=== PATIENT | female | born 1990 | race Caucasian/White ===

== ENCOUNTER 2020-02-17 11:11 | Outpatient (REF) | payer OTHER, SELFPAY ==
[2020-02-18 11:58] LABS: CT PCR NOT DETECTED (Not Detect.)
[2020-02-18 11:59] LABS: NG PCR NOT DETECTED (Not Detect.)
[2020-02-18 12:22] LABS: BV Int Neg Control Negative (Negative); BV Int Pos Control Positive (Positive)
== END 2020-02-17 11:12 | disposition home or self-care (01) ==
LOC: HO.LNP 11:11
PROVIDERS: PCP Internal Medicine; Visit Provider Advanced Practice Midwife
DX: Z30.431 Encounter for routine checking of intrauterine contraceptive device (principal); R10.2 Pelvic and perineal pain
CPT/HCPCS: 87480; 87491; 87510; 87591; 87660; 99213

== ENCOUNTER 2020-02-21 11:12 | Outpatient (REF) | payer OTHER, SELFPAY ==
--- NOTE | 2020-02-21 11:28 | US_ITS ---
EXAMINATION: US PELVIS, COMPLETE CLINICAL INFORMATION: Pelvic and perineal pain. COMPARISON: None TECHNIQUE: Transabdominal and transvaginal imaging was performed. FINDINGS: LMP: 02/17/2020 Uterus is anteverted , measuring 8.6 x 4.1 cm. Hypoechoic 0.7 x 0.6 x 0.8 cm focus in the anterior uterine myometrium, probable fibroid. There is an IUD present in the endometrium. This limits evaluation for the endometrial thickness. Nabothian cyst present. There is trace fluid in the cervix endometrial canal. Right ovary measures 3.7 x 2.5 x 2.2 cm, volume 10.7 mL. Left ovary measures 2.7 x 2.4 x 2 cm, volume 7.1 mL. Bilateral ovaries appear unremarkable. Small follicles present. No free fluid in the cul-de-sac. IMPRESSION: 1. IUD present, appears positioned within the endometrial canal. 2. Probable uterine fibroid measuring 0.8 cm.
== END 2020-02-21 11:13 | disposition home or self-care (01) ==
LOC: HO.US 11:12
PROVIDERS: Visit Provider Advanced Practice Midwife
DX: R10.2 Pelvic and perineal pain (principal); Z97.5 Presence of (intrauterine) contraceptive device
CPT/HCPCS: 76830; 76856

== ENCOUNTER 2020-03-07 11:13 | Outpatient (REF) | payer OTHER, SELFPAY | END 2020-03-07 11:14 | disposition home or self-care (01) | LOC: HO.LAB 11:13 | PROVIDERS: Visit Provider Advanced Practice Midwife | DX: R10.2 Pelvic and perineal pain (principal); Z30.432 Encounter for removal of intrauterine contraceptive device; Z30.09 Encounter for other general counseling and advice on contraception | CPT/HCPCS: 99212 ==

== ENCOUNTER 2020-05-03 18:41 | Emergency (ER) | payer OTHER, SELFPAY ==
[2020-05-03 19:00] VITALS: BP 134/78; PULSE 97; RESP 18; TEMP 37.1; O2SAT 98; BMI 43.9
[2020-05-03 20:00] VITALS: BP 146/87; PULSE 77; RESP 18; TEMP 36.8; O2SAT 98
--- NOTE | 2020-05-03 20:11 | CT_ITS ---
EXAMINATION: CT ABDOMEN AND PELVIS WITHOUT CONTRAST CLINICAL INFORMATION: Left flank pain COMPARISON: None TECHNIQUE: Multidetector volumetric imaging was performed from the superior aspect of the liver through the pubic symphysis. Sagittal and coronal reformatted images were obtained on the technologist's workstation. This CT examination was performed using dose optimization techniques as appropriate, variously including the following: *Automated exposure control *Adjustment of mA and/or kV according to patient size (this includes techniques or standardized protocols for targeted exams where dose is matched to indication/reason for exam; i.e. extremities or head) *Use of iterative reconstruction technique DLP: 992 mGy-cm FINDINGS: LUNG BASES: The visualized lung bases are unremarkable. LIVER, GALLBLADDER, AND BILIARY TREE: Liver normal in size, contour and morphology. Mild diffuse hepatic steatosis. No focal liver lesions. No intra or extrahepatic biliary dilatation. Gallbladder unremarkable. PANCREAS: Unremarkable. SPLEEN: Unremarkable. ADRENAL GLANDS: Unremarkable. KIDNEYS AND URETERS: There is a 6 x 4 mm calculus within the distal left ureter at the ureterovesical moderate upstream hydroureteronephrosis and perinephric stranding. No calculi are present. BLADDER: Unremarkable. GASTROINTESTINAL TRACT: No bowel related abnormalities ABDOMINAL WALL: No significant hernia is appreciated. LYMPH NODES: Normal. VASCULAR: Unremarkable. PELVIC VISCERA: Uterus and adnexa unremarkable. OSSEOUS STRUCTURES: Unremarkable. CT/CT abdomen pelvis wo IV con IMPRESSION: There is a 6 x 4 mm calculus within the distal LEFT ureter at the ureterovesical junction associated with moderate upstream hydroureteronephrosis.
--- NOTE | 2020-05-03 20:17 | ED_ITS ---
HPI - Abdominal Pain General Chief Complaint: Abdominal Pain Stated Complaint: ?kidney pain Time Seen by Provider: 05/03/20 20:11 Source: patient Mode of arrival: ambulatory Limitations: no limitations History of Present Illness HPI narrative: 29-year-old female presented with left-sided upper back/left side lower abdominal pain pain started few weeks ago but today pain is worse in her left flank area radiating down to the left groin area, patient feeling nauseous and decreased p.o. intake, patient describes pain as constant fluctuating now pain is 7/10, pain is associated with nonbloody watery diarrhea and decreased p.o. appetite, movement of the trunk will worsen the pain, nothing makes pain better. Patient declined any UTI symptoms no dysuria, no urinary frequency, no blood in the urine. Related Data Home Medications Medication Instructions Recorded Confirmed levonorgestrel 20 mcg/24 hours (6 INTRAUTERINE 02/17/20 02/17/20 yrs) 52 mg intrauterine device omeprazole 20 mg capsule,delayed 20 mg PO DAILY 02/17/20 02/17/20 release escitalopram oxalate 20 mg tablet 20 mg PO DAILY 03/07/20 Previous Rx's Medication Instructions Recorded etonogestrel 0.12 mg-ethinyl 1 vag ring VAGINAL Q4W #1 ea 03/07/20 estradiol 0.015 mg/24 hr vaginal ring oxycodone-acetaminophen [Percocet] 1 tab PO Q6H PRN #14 tab 05/03/20 Allergies Allergy/AdvReac Type Severity Reaction Status Date / Time No Known Allergies Allergy Verified 03/07/20 11:54 [No Known Allergies*] Review of Systems Review of Systems All other systems are reviewed and are negative Constitutional: Reports as per HPI and Reports no additional constitutional complaints Eyes: Reports as per HPI and Reports no additional eye complaints Reports system reviewed and no additional complaints, except as documented Cardiovascular: Reports as per HPI and Reports no additional cardiovascular complaints Respiratory: Reports as per HPI and Reports no additional respiratory complaints Gastrointestinal: Reports as per HPI and Reports no additional gastrointestinal complaints Genitourinary: Reports no additional female genitourinary complaints Musculoskeletal: Reports no additional musculoskeletal complaints Skin/Breast: Reports system reviewed and no additional complaints, except as docu Psychiatric: Reports no additional psychiatric complaints Endocrine: Reports no additional endocrine complaints Hematologic/Lymphatic: Reports no additional hematologic/lymphatic complaints Allergic/Immunologic: Reports no additional allergic/immunologic complaints Reports system reviewed and no additional complaints, except as documented and Reports Abnormal speech present Physical Exam Vital Signs: Vital Signs: Last Vital Signs Temp 98.2 F 05/03/20 20:00 Pulse 77 05/03/20 20:00 Resp 18 05/03/20 20:00 BP 146/87 H 05/03/20 20:00 Pulse Ox 98 05/03/20 20:00 Body Mass Index 43.9 Vital signs have been reviewed as normal and appeared to be correct. Blood pres sure and a high range. Heart rate normal. Respiration rate normal. Temperature normal. Oxygen saturation normal. Appearance: Alert. Oriented X3. No acute distress. Head: Normal external exam. Normocephalic. Atraumatic. No Waddell signs noted. No raccoon eyes noted Eyes: PERRLA. EOMI. Conjunctiva and sclera normal. Eyelids normal. ENT: EAC normal. TM's Normal. Pharynx normal. Uvula midline. Moist mucous membranes. No trismus noted. No drooling noted. No muffled voice noted. Neck: Normal inspection. Neck supple. FROM. No adenopathy. Thyroid Normal. No meningeal signs. No neck mass noted. CVS: Normal heart rate and rhythm. Heart sound normal. No murmurs noted. Pulses normal throughout. Respiratory: No respiratory distress. Painless inspiration. Breath sounds normal. No wheezes/rales/rhonchi noted. Chest nontender. No accessory muscle usage noted or decreased air movement noted. Abdomen: Soft, with mild tenderness in the left lower quadrant area, mild CVA tenderness on the left side, no rebound tenderness, no guarding.. Bowel sounds normal in all 4 quadrants. No distention noted. No organomegaly noted. No visible injury noted. Back: Left CVA tenderness (mild). Full range of motion noted. Skin: Skin warm and dry. Normal skin color. Normal skin turgor. No rashes/lesions/lacerations noted. Extremities: No lower extremity edema. Extremities exhibit normal range of motion. Extremities nontender. Neuro: Oriented X 3. No motor deficit. No sensory deficit. Reflexes normal. Course Course Course Narrative: Assessment and plan. 29-year-old female came in with left flank/left lower abdominal pain. Workup revealed patient have 6 x 4 mm calculus in the left distal UVJ, patient is comfortable now pain is about 1/10 no other associated symptoms, patient would like to go home for the holidays, patient was offered admission but rather to go home, the plan was discussed with the patient to drink plenty of fluid, prescribed pain medication, contact Dr. Flores after holiday, and if pain gets worse patient return to the emergency department. MDM - Abdominal Pain Lab Data Result diagrams: 05/03/20 20:58 05/03/20 20:58 Labs: Lab Results 05/03/20 05/03/20 05/03/20 Range/Units 20:58 20:58 20:58 WBC 11.4 H (4.8-10.8) X10*3/uL RBC 4.50 (4.20-5.50) X10*6/uL Hgb 13.5 (12.0-16.0) g/dl Hct 39.4 (37-47) % MCV 87.6 (80-98) fL MCH 30.0 (27.0-33.0) pg MCHC 34.3 (31.0-35.0) g/dl RDW 11.8 (11.0-16.0) % Plt Count 240 (160-400) X10*3/uL MPV 11.6 (9.4-12.3) fL Immature Gran % (Auto) 0.4 (0.0-0.4) % Neut % (Auto) 74.1 H (45-73) % Lymph % (Auto) 17.9 L (20-40) % [place] % (Auto) 6.7 (2-11) % Eos % (Auto) 0.6 (0-4) % Baso % (Auto) 0.3 (0-2) % Lymph # (Auto) 2.0 (1.2-4.9) X10*3/uL [place] # (Auto) 0.8 (0.1-1.2) X10*3/uL Eos # (Auto) 0.1 (0.0-0.4) X10*3/uL Baso # (Auto) 0.0 (0.0-0.2) X10*3/uL Abs Immat Gran (auto) 0.04 H (0.00-0.03) X10*3/uL Absolute Neuts (auto) 8.5 H (2.0-8.3) X10*3/uL Absolute Nucleated RBC 0.000 (0.0-0.012) X10*3/uL Nucleated RBC % (auto) 0.0 (0.0-0.2) /100WBC Sodium 136 (135-145) mmol/L Potassium 4.5 (3.3-5.1) mmol/l Chloride 103 (96-108) mmol/L Carbon Dioxide 25 (22-29) mmol/L Anion Gap 13 (12-20) BUN 11 (9-16) mg/dL Creatinine 1.24 (0.5-1.4) mg/dL Estim Creat Clear Calc 85.9 Estimated GFR 51 Random Glucose 99 (60-115) mg/dL Calcium 9.2 (8.4-10.2) mg/dL Total Bilirubin 0.4 (0.0-1.0) mg/dL Direct Bilirubin 0.2 (0.0-0.5) mg/dL AST 21 (5-31) U/L ALT 21 (0-31) U/L Alkaline Phosphatase 67 (39-117) U/L Total Protein 7.5 (6.5-8.0) g/dL Albumin 4.4 (3.5-5.0) g/dL Lipase 25 (8-78) U/L Urine Color YELLOW Urine Appearance CLEAR Urine pH 6.0 (5.0-8.0) Ur Specific [place] 1.020 (1.005-1.025) Urine Protein NEG (NEG-TRACE) MG/DL Urine Glucose (UA) NEG (NEG) MG/DL Urine Ketones NEG (NEG) MG/DL Urine Blood 1+ H (NEG) Urine Nitrite NEG (NEG) Ur Leukocyte Esterase NEG (NEG) Urine RBC 0-2 (0) /HPF Urine WBC 0 (0-4) /HPF Ur Squamous Epith Cells TRACE /LPF Urine Bacteria NONE /LPF Urine Test NEGATIVE (NEGATIVE) Imaging Data CT scan - abdomen: Radiologist's impression: IMPRESSION: There is a 6 x 4 mm calculus within the distal LEFT ureter at the ureterovesical junction associated with moderate upstream hydroureteronephrosis. Discharge Plan Discharge Clinical Impression: Renal colic on left side, Calculi, ureter Patient Disposition: Home, Self-Care Prescriptions: New oxycodone-acetaminophen [Percocet] 5-325 mg tablet 1 tab PO Q6H PRN (Reason: pain) Qty: 14 RF: 0 No Action etonogestrel-ethinyl estradiol [NuvaRing] 0.12-0.015 mg/24 hr ring 1 vag ring vaginal Q4W Qty: 1 RF: 3 omeprazole 20 mg capsule,delayed release(DR/EC) 20 mg PO DAILY RF: 0 Mirena 20 mcg/24 hours (5 yrs) 52 mg intrauterine device intrauterine RF: 0 Referrals: Jose G Flores MD [Physician] - 2 days [facility] Past Medical History Medical History Morbid obesity with BMI of 40.0-44.9, adult Surgical History No history of previous surgery Family History Family History Maternal Aunt Breast cancer Social History Social History Alcohol intake: never Smoking Status: Never smoker Smoked in Last 30 Days: No Use of substances other than those prescribed or required for medical reasons: No Advance Directives: No Advance Directives Information Provided: Yes Gender identity: female
[2020-05-03] MEDS: Ketorolac Tromethamine 15 MG/ML VIAL IV (21:00)
[2020-05-03] MEDS: 0.9 % Sodium Chloride 1,000 ML 999 ML IVCONT (21:00)
[2020-05-03 21:21] LABS: MANUAL DIFF FLAG NO
[2020-05-03 21:22] LABS: Basophils Percent Auto 0.3 % (0-2); Eosinophils Absolute Auto 0.1 X10*3/uL (0.0-0.4); Eosinophils Percent Auto 0.6 % (0-4); Hematocrit 39.4 % (37-47); Hemoglobin 13.5 g/dl (12.0-16.0); Imm Gran Abs Auto 0.04 X10*3/uL (0.00-0.03); Imm Gran Pct Auto 0.4 % (0.0-0.4); Lymphocytes Percent Auto 17.9 % (20-40); Mean Corpuscular HGB Conc 34.3 g/dl (31.0-35.0); Mean Corpuscular Volume 87.6 fL (80-98); Mean Platelet Volume 11.6 fL (9.4-12.3); Monocytes Absolute Auto 0.8 X10*3/uL (0.1-1.2); Monocytes Percent Auto 6.7 % (2-11); Neutrophils Absolute Auto 8.5 X10*3/uL (2.0-8.3); Neutrophils Percent Auto 74.1 % (45-73); Platelet Count 240 X10*3/uL (160-400); Red Cell Distribution Width 11.8 % (11.0-16.0); White Blood Count 11.4 X10*3/uL (4.8-10.8)
[2020-05-03 21:34] LABS: Glucose Urine UA NEG (NEG); Leukocyte Esterase Urine NEG (NEG); Nitrite Urine NEG (NEG); Urine Blood 1+ (NEG); Urine Ketones NEG (NEG); Urine Protein NEG (NEG-TRACE)
[2020-05-03 21:37] LABS: Appearance Urine CLEAR; Color Urine YELLOW
[2020-05-03 21:49] LABS: Alanine Aminotransferase 21 U/L (0-31); Albumin Level 4.4 g/dL (3.5-5.0); Alkaline Phosphatase 67 U/L (39-117); Anion Gap 13 (12-20); Aspartate Amino Transferase 21 U/L (5-31); Bilirubin Direct 0.2 mg/dL (0.0-0.5); Bilirubin Total 0.4 mg/dL (0.0-1.0); Blood Urea Nitrogen 11 mg/dL (9-16); Calcium 9.2 mg/dL (8.4-10.2); Carbon Dioxide 25 mmol/L (22-29); Chloride 103 mmol/L (96-108); Creatinine Clr Calc Pharmacy 85.9; Estimated Glomerular Filt Rate 51; Glucose Random 99 mg/dL (60-115); Lipase 25 U/L (8-78); Potassium 4.5 mmol/l (3.3-5.1); Sodium 136 mmol/L (135-145); Total Protein 7.5 g/dL (6.5-8.0)
[2020-05-03 22:00] VITALS: BP 151/92; PULSE 89; RESP 18; TEMP 36.9; O2SAT 97
[2020-05-03 22:04] LABS: RBC Urine 0-2 /HPF (0); Squamous Epithelial Cell Urine TRACE /LPF; WBC Urine 0 /HPF (0-4)
[2020-05-03 22:05] LABS: UPreg QC Valid YES; Urine Pregnancy NEGATIVE (NEGATIVE)
== END 2020-05-03 23:09 | disposition home or self-care (01) ==
PROVIDERS: Emergency Provider Emergency Medicine; PCP Internal Medicine
DX: N13.2 Hydronephrosis with renal and ureteral calculous obstruction (principal)
CPT/HCPCS: 36415; 74176; 80048; 80076; 81001; 81025; 83690; 85025; 96361; 96374; 99284; 99285; J1885

== ENCOUNTER 2020-05-04 10:32 | Emergency (ER) | payer OTHER, SELFPAY ==
[2020-05-04 10:49] VITALS: BP 132/77; PULSE 88; RESP 16; TEMP 36.6; O2SAT 97; BMI 43.9
[2020-05-04] MEDS: Morphine Sulfate 4 MG/ML CARTRIDGE IVPUSH (11:32)
[2020-05-04] MEDS: 0.9 % Sodium Chloride 1,000 ML 999 ML IV (11:33)
[2020-05-04 11:38] LABS: MANUAL DIFF FLAG NO
[2020-05-04 11:40] LABS: Glucose Urine UA NEG (NEG); Leukocyte Esterase Urine NEG (NEG); Nitrite Urine NEG (NEG); PH 6.5 (5.0-8.0); Specific Gravity - Urine 1.015 (1.005-1.025); Urine Blood 2+ (NEG); Urine Ketones NEG (NEG); Urine Protein NEG (NEG-TRACE)
[2020-05-04 11:43] LABS: Appearance Urine CLEAR; Color Urine YELLOW
[2020-05-04 11:44] LABS: Basophils Percent Auto 0.2 % (0-2); Eosinophils Percent Auto 0.2 % (0-4); Hematocrit 41.8 % (37-47); Hemoglobin 14.3 g/dl (12.0-16.0); Imm Gran Abs Auto 0.02 X10*3/uL (0.00-0.03); Imm Gran Pct Auto 0.2 % (0.0-0.4); Lymphocytes Absolute Auto 1.6 X10*3/uL (1.2-4.9); Lymphocytes Percent Auto 15.6 % (20-40); Mean Corpuscular HGB Conc 34.2 g/dl (31.0-35.0); Mean Corpuscular Hemoglobin 30.3 pg (27.0-33.0); Mean Corpuscular Volume 88.6 fL (80-98); Mean Platelet Volume 11.1 fL (9.4-12.3); Monocytes Absolute Auto 0.7 X10*3/uL (0.1-1.2); Monocytes Percent Auto 6.9 % (2-11); Neutrophils Absolute Auto 7.7 X10*3/uL (2.0-8.3); Neutrophils Percent Auto 76.9 % (45-73); Platelet Count 243 X10*3/uL (160-400); Red Blood Count 4.72 X10*6/uL (4.20-5.50); Red Cell Distribution Width 11.8 % (11.0-16.0)
--- NOTE | 2020-05-04 11:48 | ED.ABDPAIN ---
HPI - Abdominal Pain General Chief Complaint: Abdominal Pain Stated Complaint: flank pain Time Seen by Provider: 05/04/20 10:59 Source: patient Mode of arrival: ambulatory Limitations: no limitations History of Present Illness HPI narrative: Patient presents ED for left flank pain. Patient was diagnosis this morning around 00:00 with left ureter stone with moderate hydronephrosis and perinephric stranding. Patient was offered admission but did not want to stay. Patient returned because the pain has worsened and not improve even with oral pain medication. Patient states no fever or chills. Related Data Home Medications Medication Instructions Recorded Confirmed levonorgestrel 20 mcg/24 hours (6 INTRAUTERINE 02/17/20 02/17/20 yrs) 52 mg intrauterine device omeprazole 20 mg capsule,delayed 20 mg PO DAILY 02/17/20 02/17/20 release escitalopram oxalate 20 mg tablet 20 mg PO DAILY 03/07/20 Previous Rx's Medication Instructions Recorded etonogestrel 0.12 mg-ethinyl 1 vag ring VAGINAL Q4W #1 ea 03/07/20 estradiol 0.015 mg/24 hr vaginal ring oxycodone-acetaminophen [Percocet] 1 tab PO Q6H PRN #14 tab 05/03/20 ondansetron HCl [Zofran] 4 mg PO Q6H PRN #8 tab 05/04/20 prednisone 40 mg PO DAILY #10 tab 05/04/20 tamsulosin [Flomax] 0.4 mg PO DAILY #7 cap 05/04/20 Allergies Allergy/AdvReac Type Severity Reaction Status Date / Time No Known Allergies Allergy Verified 03/07/20 11:54 [No Known Allergies*] Review of Systems Review of Systems Yes all other systems are reviewed and are negative Constitutional: Reports as per HPI and Reports no additional constitutional complaints Eyes: Reports as per HPI and Reports no additional eye complaints Reports system reviewed and no additional complaints, except as documented and Reports as per HPI Cardiovascular: Reports as per HPI and Reports no additional cardiovascular complaints Respiratory: Reports as per HPI and Reports no additional respiratory complaints Gastrointestinal: Reports as per HPI and Reports no additional gastrointestinal complaints Comments: Left flank pain Genitourinary: Reports no additional female genitourinary complaints and Reports as per HPI Musculoskeletal: Reports no additional musculoskeletal complaints and Reports as per HPI Reports system reviewed and no additional complaints, except as documented and Reports as per HPI Psychiatric: Reports no additional psychiatric complaints and Reports as per HPI Physical Exam Vital Signs: Vital Signs: Last Vital Signs Temp 97.8 F 05/04/20 10:49 Pulse 81 05/04/20 12:31 Resp 16 05/04/20 12:31 BP 110/55 L 05/04/20 12:31 Pulse Ox 98 05/04/20 12:31 Body Mass Index 43.9 Const: General: cooperative, healthy appearing, comfortable, no acute distress and well developed Orientation/consciousness: patient oriented x3 HENMT: Head: Yes normal to inspection and Yes No palpable skull fracture present Eyes: General: appearance normal, both eyes and all related structures Neck: Neck: Yes normal visual inspection, Yes full ROM and Yes no lymphadenopathy Chest: Chest palpation & inspection: normal inspection of the chest and normal palpation of entire chest wall Resp: Effort & Inspection: normal respiratory effort and able to speak in complete sentences Auscultation: clear to auscultation bilaterally Cardio: Jugular venous distension: no JVD Heart sounds: S1 normal heart sound present and S2 normal heart sound present GI: Inspection: Yes normal to inspection and No abdominal wall ecchymosis Palpation (GI): Soft to palpation, not firm, nontender, no guarding and not rigid : General: Yes CVA tenderness (Left flank) Back/Spine/Pelvis: Back: CVA tenderness (Left flank) Skin: General skin exam: no rashes or lesions noted and elasticity normal Neuro: General: patient oriented x3, gait normal and CN's II-XI intact bilaterally Cranial nerves: Yes CN's II-XII intact bilaterally Extrem: General: Yes normal to inspection and Yes full ROM Psych: Appearance: grossly normal, well kempt and not disheveled Course Course Course Narrative: Patient return for worsening left flank pain after being diagnosed with kidney stones this morning at 00:00. Patient CT scan was done less than 10 hours ago radiology was concern for radiation exposure. After labs will call urologist to see if patient should be admitted or if if repeat CT indicated. Reevaluation(s) Reevaluation #1: No need for repeat CT scan. Patient had 1 less than 10 hours ago. Patient's pain improved from a 6 to a 2 after receiving morphine. Spoke with Urology on-call, Dr Olmstead, and he was informed of patient's history, physical exam, and the CT scan reading from yesterday. He states patient should be discharged with Flomax and prednisone which she was not done with on prior visit. He does not recommend admission Vital signs are stable no need for repeat imaging. Patient will follow-up with Urology on Thursday. He recommends patient to receive 0.8 mg of Flomax in the ED and discharged with Flomax and prednisone. Time: 13:27 MDM - Abdominal Pain MDM Narrative Medical decision making narrative: Ureter stone Lab Data Result diagrams: 05/04/20 11:05/04/20 11:29 Labs: Lab Results 05/04/20 05/04/20 05/04/20 Range/Units 11:28 11:29 11:29 WBC 10.0 (4.8-10.8) X10*3/uL RBC 4.72 (4.20-5.50) X10*6/uL Hgb 14.3 (12.0-16.0) g/dl Hct 41.8 (37-47) % MCV 88.6 (80-98) fL MCH 30.3 (27.0-33.0) pg MCHC 34.2 (31.0-35.0) g/dl RDW 11.8 (11.0-16.0) % Plt Count 243 (160-400) X10*3/uL MPV 11.1 (9.4-12.3) fL Immature Gran % (Auto) 0.2 (0.0-0.4) % Neut % (Auto) 76.9 H (45-73) % Lymph % (Auto) 15.6 L (20-40) % [place] % (Auto) 6.9 (2-11) % Eos % (Auto) 0.2 (0-4) % Baso % (Auto) 0.2 (0-2) % Lymph # (Auto) 1.6 (1.2-4.9) X10*3/uL [place] # (Auto) 0.7 (0.1-1.2) X10*3/uL Eos # (Auto) 0.0 (0.0-0.4) X10*3/uL Baso # (Auto) 0.0 (0.0-0.2) X10*3/uL Abs Immat Gran (auto) 0.02 (0.00-0.03) X10*3/uL Absolute Neuts (auto) 7.7 (2.0-8.3) X10*3/uL Absolute Nucleated RBC 0.000 (0.0-0.012) X10*3/uL Nucleated RBC % (auto) 0.0 (0.0-0.2) /100WBC PT 11.7 (10.8-13.0) SEC INR 1.0 (0.9-1.1) APTT 34.0 (24.1-38.0) SEC Sodium 137 (135-145) mmol/L Potassium 4.5 (3.3-5.1) mmol/l Chloride 103 (96-108) mmol/L Carbon Dioxide 24 (22-29) mmol/L Anion Gap 15 (12-20) BUN 10 (9-16) mg/dL Creatinine 1.26 (0.5-1.4) mg/dL Estim Creat Clear Calc 84.6 Estimated GFR 50 Random Glucose 104 (60-115) mg/dL Calcium 9.1 (8.4-10.2) mg/dL Total Bilirubin 0.7 (0.0-1.0) mg/dL AST 21 (5-31) U/L ALT 20 (0-31) U/L Alkaline Phosphatase 73 (39-117) U/L Total Protein 7.6 (6.5-8.0) g/dL Albumin 4.5 (3.5-5.0) g/dL Beta HCG, Quant < 2 mIU/mL Urine Color Urine Appearance Urine pH (5.0-8.0) Ur Specific [place] (1.005-1.025) Urine Protein (NEG-TRACE) MG/DL Urine Glucose (UA) (NEG) MG/DL Urine Ketones (NEG) MG/DL Urine Blood (NEG) Urine Nitrite (NEG) Ur Leukocyte Esterase (NEG) Urine RBC (0) /HPF Urine WBC (0-4) /HPF Ur Squamous Epith Cells /LPF Urine Bacteria /LPF 05/04/ Range/Units 11:29 WBC (4.8-10.8) X10*3/uL RBC (4.20-5.50) X10*6/uL Hgb (12.0-16.0) g/dl Hct (37-47) % MCV (80-98) fL MCH (27.0-33.0) pg MCHC (31.0-35.0) g/dl RDW (11.0-16.0) % Plt Count (160-400) X10*3/uL MPV (9.4-12.3) fL Immature Gran % (Auto) (0.0-0.4) % Neut % (Auto) (45-73) % Lymph % (Auto) (20-40) % [place] % (Auto) (2-11) % Eos % (Auto) (0-4) % Baso % (Auto) (0-2) % Lymph # (Auto) (1.2-4.9) X10*3/uL [place] # (Auto) (0.1-1.2) X10*3/uL Eos # (Auto) (0.0-0.4) X10*3/uL Baso # (Auto) (0.0-0.2) X10*3/uL Abs Immat Gran (auto) (0.00-0.03) X10*3/uL Absolute Neuts (auto) (2.0-8.3) X10*3/uL Absolute Nucleated RBC (0.0-0.012) X10*3/uL Nucleated RBC % (auto) (0.0-0.2) /100WBC PT (10.8-13.0) SEC INR (0.9-1.1) APTT (24.1-38.0) SEC Sodium (135-145) mmol/L Potassium (3.3-5.1) mmol/l Chloride (96-108) mmol/L Carbon Dioxide (22-29) mmol/L Anion Gap (12-20) BUN (9-16) mg/dL Creatinine (0.5-1.4) mg/dL Estim Creat Clear Calc Estimated GFR Random Glucose (60-115) mg/dL Calcium (8.4-10.2) mg/dL Total Bilirubin (0.0-1.0) mg/dL AST (5-31) U/L ALT (0-31) U/L Alkaline Phosphatase (39-117) U/L Total Protein (6.5-8.0) g/dL Albumin (3.5-5.0) g/dL Beta HCG, Quant mIU/mL Urine Color YELLOW Urine Appearance CLEAR Urine pH 6.5 (5.0-8.0) Ur Specific [place] 1.015 (1.005-1.025) Urine Protein NEG (NEG-TRACE) MG/DL Urine Glucose (UA) NEG (NEG) MG/DL Urine Ketones NEG (NEG) MG/DL Urine Blood 2+ H (NEG) Urine Nitrite NEG (NEG) Ur Leukocyte Esterase NEG (NEG) Urine RBC 1-4 (0) /HPF Urine WBC 0-2 (0-4) /HPF Ur Squamous Epith Cells 2+ /LPF Urine Bacteria 1+ /LPF Discharge Plan Discharge Clinical Impression: Calculi, ureter Patient Disposition: Home, Self-Care Instructions: Ureteral Stones (ED) Additional Instructions: Return to the ED immediately for worsening abdominal pain, nausea, vomiting, fever, chills, flank pain, or any other concerning symptoms. Prescriptions: New tamsulosin [Flomax] 0.4 mg capsule 0.4 mg PO DAILY Qty: 7 RF: 0 prednisone 20 mg tablet 40 mg PO DAILY Qty: 10 RF: 0 ondansetron HCl [Zofran] 4 mg tablet 4 mg PO Q6H PRN (Reason: nausea) Qty: 8 RF: 0 No Action oxycodone-acetaminophen [Percocet] 5-325 mg tablet 1 tab PO Q6H PRN (Reason: pain) Qty: 14 RF: 0 etonogestrel-ethinyl estradiol [NuvaRing] 0.12-0.015 mg/24 hr ring 1 vag ring vaginal Q4W Qty: 1 RF: 3 omeprazole 20 mg capsule,delayed release(DR/EC) 20 mg PO DAILY RF: 0 Mirena 20 mcg/24 hours (5 yrs) 52 mg intrauterine device intrauterine RF: 0 Referrals: Brenden Arias III, MD [Physician] - 2 days (Left 6 x 4 mm ureter stone.) Stand Alone Forms: Work/School Release Interventions: ED Discharge Assessment Last Done: 05/04/20 14:02 Discharge Date/Time: 05/04/20 14:03 Print Language: Kyr[place]z [facility] Past Medical History Medical History Morbid obesity with BMI of 40.0-44.9, adult Surgical History No history of previous surgery Family History Family History Maternal Aunt Breast cancer Social History Social History Alcohol intake: never Smoking Status: Never smoker Smoked in Last 30 Days: No Use of substances other than those prescribed or required for medical reasons: No Advance Directives: No Advance Directives Information Provided: Yes Gender identity: female
[2020-05-04 11:49] LABS: Prothrombin Time 11.7 SEC (10.8-13.0)
[2020-05-04 11:54] LABS: Bacteria Urine 1+ /LPF; Squamous Epithelial Cell Urine 2+ /LPF; WBC Urine 0-2 /HPF (0-4)
[2020-05-04] MEDS: Tamsulosin HCL 0.4 MG CAPSULE PO (12:01)
[2020-05-04 12:04] LABS: Alanine Aminotransferase 20 U/L (0-31); Albumin Level 4.5 g/dL (3.5-5.0); Alkaline Phosphatase 73 U/L (39-117); Anion Gap 15 (12-20); Aspartate Amino Transferase 21 U/L (5-31); Bilirubin Total 0.7 mg/dL (0.0-1.0); Blood Urea Nitrogen 10 mg/dL (9-16); Calcium 9.1 mg/dL (8.4-10.2); Carbon Dioxide 24 mmol/L (22-29); Chloride 103 mmol/L (96-108); Creatinine Clr Calc Pharmacy 84.6; Estimated Glomerular Filt Rate 50; Glucose Random 104 mg/dL (60-115); Potassium 4.5 mmol/l (3.3-5.1); Sodium 137 mmol/L (135-145); Total Protein 7.6 g/dL (6.5-8.0)
[2020-05-04 12:11] LABS: HCG Quantitative < 2 mIU/mL
[2020-05-04 12:31] VITALS: BP 110/55; PULSE 81; RESP 16; O2SAT 98
== END 2020-05-04 14:03 | disposition home or self-care (01) ==
PROVIDERS: Physician Assistant; Emergency Provider Emergency Medicine Emergency Medical Services; PCP Internal Medicine
DX: N20.1 Calculus of ureter (principal); R10.9 Unspecified abdominal pain; Z79.899 Other long term (current) drug therapy
CPT/HCPCS: 36415; 80053; 81001; 84702; 85025; 85610; 85730; 96361; 96374; 99284; J2270

== ENCOUNTER → 2020-05-17 15:14 | Outpatient (BNVA) | payer OTHER, SELFPAY | PROVIDERS: PCP Internal Medicine; Visit Provider Urology | DX: N13.2 Hydronephrosis with renal and ureteral calculous obstruction (principal) | CPT/HCPCS: 99202 ==

== ENCOUNTER 2020-06-23 08:10 | Emergency (ER) | payer OTHER, SELFPAY ==
--- NOTE | ~2020-06-23 | CT_ITS ---
EXAMINATION: CT ABDOMEN AND PELVIS WITHOUT CONTRAST CLINICAL INFORMATION: Sudden onset of left flank pain. COMPARISON: 05/03/20. TECHNIQUE: Multidetector volumetric imaging was performed from the superior aspect of the liver through the pubic symphysis. Sagittal and coronal reformatted images were obtained on the technologist's workstation. This CT examination was performed using dose optimization techniques as appropriate, variously including the following: *Automated exposure control *Adjustment of mA and/or kV according to patient size (this includes techniques or standardized protocols for targeted exams where dose is matched to indication/reason for exam; i.e. extremities or head) *Use of iterative reconstruction technique DLP: 1044 mGy-cm FINDINGS: LUNG BASES: A small area of groundglass opacity is seen at the left lung base presumably inflammatory. This was not seen on the prior study. The lung bases are otherwise clear. LIVER, GALLBLADDER, AND BILIARY TREE: The liver is normal in size, shape, and attenuation. No focal hepatic lesion or biliary ductal dilatation is present. The gallbladder is unremarkable with no evidence of radiopaque gallstones, gallbladder wall thickening, or obvious pericholecystic inflammatory changes. PANCREAS: Unremarkable. SPLEEN: Unremarkable. ADRENAL GLANDS: Unremarkable. KIDNEYS AND URETERS: There is an obstructing 0.5 cm calculus at the left UVJ unchanged from previous. There is associated mild hydroureteronephrosis with periureteral and perinephric fat stranding unchanged. The left kidney is relatively edematous. No intrarenal calculi are demonstrated. The kidneys are otherwise unremarkable. BLADDER: Unremarkable. GASTROINTESTINAL TRACT: The stomach and duodenum are unremarkable. The small bowel mesentery are unremarkable. The colon is unremarkable. The appendix is not visualized but no inflammatory changes are evident. ABDOMINAL WALL: No significant hernia is appreciated. LYMPH NODES: Normal. VASCULAR: Unremarkable. PELVIC VISCERA: Unremarkable. OSSEOUS STRUCTURES: Unremarkable. CT/CT abdomen pelvis wo IV con IMPRESSION: 1. Stable appearance of obstructing calculus at the left UVJ with associated mild hydroureteronephrosis. Periureteral and perinephric fat stranding. 2. New small groundglass opacity left lung base consistent with nonspecific inflammation.
[2020-06-23 08:43] VITALS: BP 152/91; PULSE 109; RESP 15; O2SAT 97; BMI 42.7
--- NOTE | 2020-06-23 08:52 | ED_ITS ---
HPI - Female Genitourinary General Chief complaint: Urogenital-Female Stated complaint: KIDNEY STONES Time Seen by Provider: 06/23/20 08:41 Source: patient Mode of arrival: ambulatory Limitations: no limitations History of Present Illness HPI Narrative: 29-year-old female who presents emergency department for evalua tion of left flank pain, nausea, vomiting and diarrhea. Patient states that she 1st had left flank pain approximately 1 1/2 weeks prior, the pain lasted 1 day and then resolved. The patient states that last night at 8:00 p.m., she had a sudden onset of left flank pain. She states that the patient was sharp and constant. The pain was 8/10 at its worst. Patient had associated nausea and vomited 4 times, there was no blood in the emesis. She has also had 10 loose diarrheal stools with no blood. She denied fever, chills, chest pain, shortness of breath, dyspnea on exertion, dysuria. She has noted urinary frequency. She states that she is not due for her menstrual period in the next 1-2 days. She states that her pain is currently 8/10. She has had no known COVID-19 exposures. Related Data Home Medications Medication Instructions Recorded Confirmed levonorgestrel 20 mcg/24 hours (6 INTRAUTERINE 02/17/20 05/17/20 yrs) 52 mg intrauterine device omeprazole 20 mg capsule,delayed 20 mg PO DAILY 02/17/20 05/17/20 release escitalopram oxalate 20 mg tablet 20 mg PO DAILY 03/07/20 05/17/20 Previous Rx's Medication Instructions Recorded etonogestrel 0.12 mg-ethinyl 1 vag ring VAGINAL Q4W #1 ea 03/07/20 estradiol 0.015 mg/24 hr vaginal ring oxycodone-acetaminophen [Percocet] 1 tab PO Q6H PRN #14 tab 05/03/20 ondansetron HCl [Zofran] 4 mg PO Q6H PRN #8 tab 05/04/20 prednisone 40 mg PO DAILY #10 tab 05/04/20 tamsulosin [Flomax] 0.4 mg PO DAILY #7 cap 05/04/20 oxycodone 5 mg PO Q4H PRN #14 tab 06/23/20 tamsulosin [Flomax] 0.4 mg PO DAILY #30 cap 06/23/20 Allergies Allergy/AdvReac Type Severity Reaction Status Date / Time No Known Allergies Allergy Verified 03/07/20 11:54 [No Known Allergies*] Review of Systems Review of Systems: Yes all other systems are reviewed and are negative Neurologic: Reports Abnormal speech present [facility] Past Medical History [facility] Narrative: The patient has a history of left-sided ureteral stone 04/29/2020 which she is not sure if she passed. She also has history of IBS. She denies tobacco use, she rarely drinks alcohol approximately once a month, she denies drug use. Medical History (Updated 06/23/20 @ 12:58 by Christiano Cancino MD) Morbid obesity with BMI of 40.0-44.9, adult Ureteral stone with hydronephrosis Surgical History No history of previous surgery Family History Family History Maternal Aunt Breast cancer Social History Social History Alcohol intake: never Smoking Status: Never smoker Advance Directives: No Advance Directives Information Provided: Yes Gender identity: female Physical Exam Vital Signs: Vital Signs: Last Vital Signs Pulse 99 06/23/20 11:57 Resp 16 06/23/20 11:57 BP 125/61 06/23/20 11:57 Pulse Ox 96 06/23/20 11:57 Body Mass Index 42.7 Const: General: other (Very pleasant and cooperative, does not appear to be in distress) Nutritional Appearance: overweight Orientation/consciousness: oriented to person and oriented to place Limitations: no limitations HENMT: Head: Yes normal to inspection, Yes normocephalic and Yes atraumatic Ears: external ears normal General nose exam: Normal external nose present Face and sinus: Yes normal facial exam Mouth: Normal oral and palatal mucosa present Throat: Yes posterior oropharynx normal Eyes: Periorbital: periorbital findings normal Eyelids: Yes eyelids normal Conjunctivae: conjunctivae normal Sclerae: sclerae normal Corneas: corneas normal Pupils: Equal, round and reactive pupils present Direct Ophthalmoscopy: normal light reflex Neck: Neck: Yes full ROM, Yes no lymphadenopathy, Yes no meningeal signs, Yes trachea midline and Yes supple Chest: Chest palpation & inspection: normal inspection of the chest and normal palpation of entire chest wall Resp: Effort & Inspection: normal respiratory effort and able to speak in complete sentences Auscultation: clear to auscultation bilaterally Cardio: Rate: regular rate Rhythm: regular rhythm Heart sounds: S1 normal heart sound present, S2 normal heart sound present and no murmurs GI: Inspection: Yes normal to inspection Palpation (GI): Soft to palpation, nontender, no guarding, not rigid and No hepatosplenomegaly present : General: Yes no CVA tenderness Back/Spine/Pelvis: Back: no CVA tenderness Cervical Spine: normal cervical lordosis Thoracic/Lumbar Spine: thoracic and lumbar spine normal to inspection Skin: Lesions: no lesions Rashes: no rashes Wounds: no wounds Neuro: General: oriented to person, oriented to place and no meningeal signs Cranial nerves: Yes CN's II-XII intact bilaterally and Yes Equal, round and reactive pupils present Cognition (Neuro): normal cognition Speech: Abnorm al speech present Motor exam (neuro): 5/5 motor strength present throughout Extrem: General: Yes normal to inspection and Yes full ROM Psych: Appearance: well kempt Mental Status: mental status grossly normal Speech and movement: Normal speech and movement present Affect: normal affect Attitude: cooperative Thought process: Normal thought process present Thought content: Normal thought content present Course Course Course Narrative: 29-year-old female with a history of IBS and kidney stone 1st diagnosed 04/29/2020 who presents emergency department for evaluation of sudden onset of left flank pain, physical examination was unremarkable. Patient's presentation is concerning for kidney/ureteral stone. I ordered laboratory evaluation and a CT scan of the abdomen pelvis without contrast. Patient's pain was treated with Toradol 30 mg IV and her nausea was treated with Zofran 4 mg IV. She was also given normal saline IV x1 L. 1253: The patient did get some initial improvement with IV Toradol but then required morphine 4 mg IV x2 doses with good relief for pain. The patient's laboratory evaluation [place] [address] with normal renal function. The patient's urinalysis revealed 3+ blood and microscopic revealed 50-75 white blood cells, 0-2 WBCs and trace bacteria. The CT scan revealed a 0.5 cm left ureteral stone at the UVJ which the radiologist described as stable similar to the previous scan. The patient however does have mild hydronephrosis with periureteral and perinephric fat stranding suggesting that the patient's p resentation is acute. The patient also had some small ground-glass opacities in the left lung base which I do not think her significant. The patient will be discharged home, she was advised to take Tylenol and ibuprofen for pain and oxycodone for pain not relieved by the other 2 medications. She was also started on Flomax 0.4 mg once a day given her 1st dose here in the emergency department. She was advised to follow-up with her urologist for re-evaluation. [place] PAT search was performed and the patient 4 prescriptions for controlled medications, with a previous prescription for oxycodone from her last visit for kidney stone. MDM - Female Genitourinary Lab Data Result diagrams: 06/23/20 08:53 06/23/20 08:53 Labs: Lab Results 06/23/20 06/23/20 06/23/20 Range/Units 08:53 08:53 08:53 WBC 12.7 H (4.8-10.8) X10*3/uL RBC 4.41 (4.20-5.50) X10*6/uL Hgb 13.1 (12.0-16.0) g/dl Hct 38.2 (37-47) % MCV 86.6 (80-98) fL MCH 29.7 (27.0-33.0) pg MCHC 34.3 (31.0-35.0) g/dl RDW 11.9 (11.0-16.0) % Plt Count 256 (160-400) X10*3/uL MPV 10.4 (9.4-12.3) fL Immature Gran % (Auto) 0.4 (0.0-0.4) % Neut % (Auto) 83.4 H (45-73) % Lymph % (Auto) 12.2 L (20-40) % [place] % (Auto) 3.4 (2-11) % Eos % (Auto) 0.4 (0-4) % Baso % (Auto) 0.2 (0-2) % Lymph # (Auto) 1.6 (1.2-4.9) X10*3/uL [place] # (Auto) 0.4 (0.1-1.2) X10*3/uL Eos # (Auto) 0.1 (0.0-0.4) X10*3/uL Baso # (Auto) 0.0 (0.0-0.2) X10*3/uL Abs Immat Gran (auto) 0.05 H (0.00-0.03) X10*3/uL Absolute Neuts (auto) 10.6 H (2.0-8.3) X10*3/uL Absolute Nucleated RBC 0.000 (0.0-0.012) X10*3/uL Nucleated RBC % (auto) 0.0 (0.0-0.2) /100WBC Sodium 136 (135-145) mmol/L Potassium 4.3 (3.3-5.1) mmol/L Chloride 105 (96-108) mmol/L Carbon Dioxide 22 (22-29) mmol/L Anion Gap 13 (12-20) BUN 15 (9-16) mg/dL Creatinine 1.06 (0.5-1.4) mg/dL Estim Creat Clear Calc 102.4 Estimated GFR > 60 Random Glucose 129 H (60-115) mg/dL Calcium 8.9 (8.4-10.2) mg/dL Total Bilirubin 0.5 (0.0-1.0) mg/dL AST 20 (5-31) U/L ALT 20 (0-31) U/L Alkaline Phosphatase 64 (39-117) U/L Total Protein 7.4 (6.5-8.0) g/dL Albumin 4.4 (3.5-5.0) g/dL Lipase 23 (8-78) U/L Urine Color YELLOW Urine Appearance CLOUDY Urine pH 7.5 (5.0-8.0) Ur Specific [place] 1.025 (1.005-1.025) Urine Protein NEG (NEG-TRACE) MG/DL Urine Glucose (UA) NEG (NEG) MG/DL Urine Ketones NEG (NEG) MG/DL Urine Blood 3+ H (NEG) Urine Nitrite NEG (NEG) Ur Leukocyte Esterase NEG (NEG) Urine RBC 50-75 H (0) /HPF Urine WBC 0-2 (0-4) /HPF Ur Squamous Epith Cells 1+ /LPF Urine Bacteria TRACE /LPF Urine Test (NEGATIVE) 06/23/20 Range/Units 08:53 WBC (4.8-10.8) X10*3/uL RBC (4.20-5.50) X10*6/uL Hgb (12.0-16.0) g/dl Hct (37-47) % MCV (80-98) fL MCH (27.0-33.0) pg MCHC (31.0-35.0) g/dl RDW (11.0-16.0) % Plt Count (160-400) X10*3/uL MPV (9.4-12.3) fL Immature Gran % (Auto) (0.0-0.4) % Neut % (Auto) (45-73) % Lymph % (Auto) (20-40) % [place] % (Auto) (2-11) % Eos % (Auto) (0-4) % Baso % (Auto) (0-2) % Lymph # (Auto) (1.2-4.9) X10*3/uL [place] # (Auto) (0.1-1.2) X10*3/uL Eos # (Auto) (0.0-0.4) X10*3/uL Baso # (Auto) (0.0-0.2) X10*3/uL Abs Immat Gran (auto) (0.00-0.03) X10*3/uL Absolute Neuts (auto) (2.0-8.3) X10*3/uL Absolute Nucleated RBC (0.0-0.012) X10*3/uL Nucleated RBC % (auto) (0.0-0.2) /100WBC Sodium (135-145) mmol/L Potassium (3.3-5.1) mmol/L Chloride (96-108) mmol/L Carbon Dioxide (22-29) mmol/L Anion Gap (12-20) BUN (9-16) mg/dL Creatinine (0.5-1.4) mg/dL Estim Creat Clear Calc Estimated GFR Random Glucose (60-115) mg/dL Calcium (8.4-10.2) mg/dL Total Bilirubin (0.0-1.0) mg/dL AST (5-31) U/L ALT (0-31) U/L Alkaline Phosphatase (39-117) U/L Total Protein (6.5-8.0) g/dL Albumin (3.5-5.0) g/dL Lipase (8-78) U/L Urine Color Urine Appearance Urine pH (5.0-8.0) Ur Specific [place] (1.005-1.025) Urine Protein (NEG-TRACE) MG/DL Urine Glucose (UA) (NEG) MG/DL Urine Ketones (NEG) MG/DL Urine Blood (NEG) Urine Nitrite (NEG) Ur Leukocyte Esterase (NEG) Urine RBC (0) /HPF Urine WBC (0-4) /HPF Ur Squamous Epith Cells /LPF Urine Bacteria /LPF Urine Test NEGATIVE (NEGATIVE) Discharge Plan Discharge Clinical Impression: Left ureteral stone, Renal colic on left side Patient Disposition: Home, Self-Care Instructions: Kidney Stones (ED) Additional Instructions: Your laboratory evaluation did reveal blood in urine otherwise was unremarkable. The CT scan of your abdomen pelvis without IV contrast did reveal a stable appearing left ureteral stone at the junction of where the ureter attached to the bladder. The radiologist felt that this may be the same stone that she had last time and you have not passed it yet. You do however have swelling of the ureter and kidney and inflammatory changes suggesting that your pain is related to this stone. Increase your fluid intake to help flush out the stone. Strain your urine to try to catch the stone Take ibuprofen 200 mg pills, 3 pills every 6 hours as needed for pain. Take Tylenol (acetaminophen) 500 mg pills, 2 pills every 4 to 6 hours as needed for pain. For pain not relieved by ibuprofen Tylenol take oxycodone 5 mg, 1 pill every 4-6 hours as needed for pain. Take Flomax 0.4 mg once a day until you pass the stone. Follow-up with your urologist within 1 week for re-evaluation Please return to the emergency department if your symptoms get worse or if you develop any symptoms that are concerning to you. Prescriptions: New tamsulosin [Flomax] 0.4 mg capsule 0.4 mg PO DAILY Qty: 30 RF: 0 oxycodone 5 mg tablet 5 mg PO Q4H PRN (Reason: pain) Qty: 14 RF: 0 No Action oxycodone-acetaminophen [Percocet] 5-325 mg tablet 1 tab PO Q6H PRN (Reason: pain) Qty: 14 RF: 0 tamsulosin [Flomax] 0.4 mg capsule 0.4 mg PO DAILY Qty: 7 RF: 0 prednisone 20 mg tablet 40 mg PO DAILY Qty: 10 RF: 0 ondansetron HCl [Zofran] 4 mg tablet 4 mg PO Q6H PRN (Reason: nausea) Qty: 8 RF: 0 escitalopram oxalate 20 mg tablet 20 mg PO DAILY RF: 0 etonogestrel-ethinyl estradiol [NuvaRing] 0.12-0.015 mg/24 hr ring 1 vag ring vaginal Q4W Qty: 1 RF: 3 omeprazole 20 mg capsule,delayed release(DR/EC) 20 mg PO DAILY RF: 0 Mirena 20 mcg/24 hours (5 yrs) 52 mg intrauterine device intrauterine RF: 0
[2020-06-23] MEDS: ondansetron HCL 4 MG/2 ML VIAL IVPUSH (09:00)
[2020-06-23] MEDS: 0.9 % Sodium Chloride 1,000 ML 999 ML IV (09:00)
[2020-06-23] MEDS: Ketorolac Tromethamine 30 MG/ML VIAL IVPUSH (09:00)
[2020-06-23 09:01] LABS: MANUAL DIFF FLAG NO
[2020-06-23 09:03] LABS: Basophils Percent Auto 0.2 % (0-2); Eosinophils Absolute Auto 0.1 X10*3/uL (0.0-0.4); Eosinophils Percent Auto 0.4 % (0-4); Hematocrit 38.2 % (37-47); Hemoglobin 13.1 g/dl (12.0-16.0); Imm Gran Abs Auto 0.05 X10*3/uL (0.00-0.03); Imm Gran Pct Auto 0.4 % (0.0-0.4); Lymphocytes Absolute Auto 1.6 X10*3/uL (1.2-4.9); Lymphocytes Percent Auto 12.2 % (20-40); Mean Corpuscular HGB Conc 34.3 g/dl (31.0-35.0); Mean Corpuscular Hemoglobin 29.7 pg (27.0-33.0); Mean Corpuscular Volume 86.6 fL (80-98); Mean Platelet Volume 10.4 fL (9.4-12.3); Monocytes Absolute Auto 0.4 X10*3/uL (0.1-1.2); Monocytes Percent Auto 3.4 % (2-11); Neutrophils Absolute Auto 10.6 X10*3/uL (2.0-8.3); Neutrophils Percent Auto 83.4 % (45-73); Platelet Count 256 X10*3/uL (160-400); Red Blood Count 4.41 X10*6/uL (4.20-5.50); Red Cell Distribution Width 11.9 % (11.0-16.0); White Blood Count 12.7 X10*3/uL (4.8-10.8)
[2020-06-23 09:06] LABS: Glucose Urine UA NEG (NEG); Leukocyte Esterase Urine NEG (NEG); Nitrite Urine NEG (NEG); PH 7.5 (5.0-8.0); Specific Gravity - Urine 1.025 (1.005-1.025); Urine Blood 3+ (NEG); Urine Ketones NEG (NEG); Urine Protein NEG (NEG-TRACE)
[2020-06-23 09:09] LABS: Appearance Urine CLOUDY; Color Urine YELLOW
[2020-06-23 09:18] LABS: Bacteria Urine TRACE /LPF; RBC Urine 50-75 /HPF (0); Squamous Epithelial Cell Urine 1+ /LPF; UPreg QC Valid YES; Urine Pregnancy NEGATIVE (NEGATIVE); WBC Urine 0-2 /HPF (0-4)
[2020-06-23 09:38] LABS: Alanine Aminotransferase 20 U/L (0-31); Albumin Level 4.4 g/dL (3.5-5.0); Alkaline Phosphatase 64 U/L (39-117); Anion Gap 13 (12-20); Aspartate Amino Transferase 20 U/L (5-31); Bilirubin Total 0.5 mg/dL (0.0-1.0); Blood Urea Nitrogen 15 mg/dL (9-16); Calcium 8.9 mg/dL (8.4-10.2); Carbon Dioxide 22 mmol/L (22-29); Chloride 105 mmol/L (96-108); Creatinine Clr Calc Pharmacy 102.4; Estimated Glomerular Filt Rate > 60; Glucose Random 129 mg/dL (60-115); Lipase 23 U/L (8-78); Potassium 4.3 mmol/L (3.3-5.1); Sodium 136 mmol/L (135-145); Total Protein 7.4 g/dL (6.5-8.0)
[2020-06-23] MEDS: Morphine Sulfate 4 MG/ML CARTRIDGE IVPUSH ×2 (11:31→13:20)
[2020-06-23 11:32] VITALS: BP 135/73; PULSE 100; RESP 16; O2SAT 98
[2020-06-23 11:57] VITALS: BP 125/61; PULSE 99; RESP 16; O2SAT 96
[2020-06-23] MEDS: Tamsulosin HCL 0.4 MG CAPSULE PO (13:20)
--- NOTE | 2020-06-23 13:43 | PC.NURSE ---
bp 132/71, hr 77, spo2 97, nad, no pain, skin wpd, steady gait
== END 2020-06-23 13:42 | disposition home or self-care (01) ==
PROVIDERS: Emergency Provider Emergency Medicine Emergency Medical Services; PCP Internal Medicine
DX: N13.2 Hydronephrosis with renal and ureteral calculous obstruction (principal); Z87.442 Personal history of urinary calculi
CPT/HCPCS: 36415; 74176; 80053; 81001; 81003; 81025; 83690; 85025; 96361; 96374; 96375; 96376; 99283; 99284; J1885; J2270; J2405

== ENCOUNTER → 2020-06-28 10:40 | Outpatient (BNVA) | payer OTHER, SELFPAY | PROVIDERS: PCP Internal Medicine; Visit Provider Urology ==

== ENCOUNTER 2020-07-02 07:51 | Day surgery (SDC) | payer OTHER, SELFPAY ==
--- NOTE | ~2020-07-02 | FL_ITS ---
EXAMINATION: XR FLUOROSCOPY WITH IMAGES CLINICAL INFORMATION: Left UVJ stone COMPARISON: Previous CT of the abdomen and pelvis 06/23/2020 TECHNIQUE: Fluoroscopy performed by Dr. Jose G Flores. Fluoroscopy time: 29 seconds Dose: 16 mGy Images: 3 FINDINGS: Initial image demonstrates contrast opacification of the the bilateral distal ureters. There is a filling defect in the left distal ureter questionable for a stone. Later images demonstrate placement of a left internal ureteral stent. The proximal end of the stent appears straightened and may be in the ureter. The distal end of the stent is coiled in the bladder. FL/FL guidance in OR IMPRESSION: Fluoroscopy guidance for retrograde exam and left internal ureteral stent placement.
[2020-07-02 08:26] VITALS: BMI 42.7
--- NOTE | 2020-07-02 08:26 | P.CONAN_ITS ---
[facility] Active Problems Active Problems: All Active Problems (Updated 06/24/20 @ 00:00 by Background Shashi gonzales) Ureteral stone with hydronephrosis (Acute) control counseling (Acute) Encounter for removal of intrauterine contraceptive device (IUD) (Acute) IUD check up (Acute) IUD (intrauterine device) in place (Acute) Pelvic pain (Acute) Past Medical History Medical History Morbid obesity with BMI of 40.0-44.9, adult Ureteral stone with hydronephrosis Family History Family History Maternal Aunt Breast cancer Surgical History Surgical History No history of previous surgery Social History Social History Alcohol intake: never Smoking Status: Never smoker Advance Directives: No Advance Directives Information Provided: Yes Gender identity: female Meds Allergies Allergy/AdvReac Type Severity Reaction Status Date / Time No Known Allergies Allergy Verified 03/07/20 11:54 [No Known Allergies*] Home Medications Medication Instructions Recorded Confirmed Last Taken Type levonorgestrel 20 mcg/24 hours (6 INTRAUTERINE 02/17/20 05/17/20 Unknown History yrs) 52 mg intrauterine device omeprazole 20 mg capsule,delayed 20 mg PO DAILY 02/17/20 05/17/20 Unknown History release escitalopram oxalate 20 mg tablet 20 mg PO DAILY 03/07/20 05/17/20 Unknown History cyclobenzaprine 10 mg tablet 10 mg PO TID 06/28/20 Unknown History Exam Exam Date and Time: July 02, 202026 Airway Mallampati Class: II TM Dist: >3cm Neck ROM: Full
[2020-07-02 08:27] VITALS: BP 124/77; PULSE 96; RESP 20; TEMP 36.3; O2SAT 96
[2020-07-02 08:32] LABS: UPreg QC Valid YES; Urine Pregnancy NEGATIVE (NEGATIVE)
[2020-07-02] MEDS: levoFLOXacin 500 MG TABLET PO (08:41)
[2020-07-02] MEDS: Lactated Ringers 1,000 ML 100 ML IVCONT (08:42)
--- NOTE | 2020-07-02 10:54 | MHC.SHP ---
Pre-Procedural Eval Section A The patient is an INPATIENT: No Changes since office visit: No Cold of Flu in the past 2 weeks, No New Medical Problems, No Changes in Medication and No Patient answered all questions The History & Physical has been completed within 30 days and I have reviewed it.: Yes Section B Chief Complaint: hydronephrosis Allergies: Allergies Allergy/AdvReac Type Severity Reaction Status Date / Time No Known Allergies Allergy Verified 03/07/20 11:54 [No Known Allergies*] Plan Diagnosis/Plan: Unchanged I have reviewed the history and physical and performed a pertinent physical examination on my patient. No changes have occurred unless specified. Left retrograde, ureteroscopy. laser. stent
[2020-07-02 11:40] VITALS: BP 148/90; PULSE 97; RESP 16; TEMP 36.4; O2SAT 97
--- NOTE | 2020-07-02 11:42 | PM.OP ---
Brief Operative Note Date of Service: 07/02/20 Pre-op diagnosis: Left distal ureteric stone Post-op diagnosis: same Procedure: 1. Cystoscopy left retrograde 2. Dilatation left ureteric orifice 3. Left ureteroscopy laser lithotripsy stone basketing 4. Left stent placement Implants: Left stent 6 [place] 24 cm double-J Surgeon: Jose G Flores MD Anesthesia: GLMA Estimated blood loss (mL): 0 Pathology: other (Stones) Condition: stable Disposition: same day
--- NOTE | 2020-07-02 11:43 | W.PM.OPN ---
Operative Note Operative Note Date of Service: 07/02/20 Narrative: PreOperative Diagnosis: Left distal ureteric stone Post Operative Diagnosis: Left distal ureteric stone Procedure: - left cystoscopy, retrograde - left dilatation of ureteric orifice under fluoroscopy - left ureteroscopy, laser lithotripsy, stone basketing - left stent placement Surgeon: Dr Jose G Flores Anesthesia: General Indications for procedure: Persistent left-sided abdominal pain and discomfort. CT scan from emergency room with left distal ureteric stone 6 mm in size. Had been present since last April. She does not think in his past although she will have times where there is minimal pain Procedure: After informed consent was verified patient was brought to the operating placed in supine position. Anesthesia was administered per protocol. Patient was placed in modified dorsal lithotomy position and prepped and draped in a sterile fashion. Safety pause time-out and side of surgery confirmed. Antibiotics confirmed. Twenty-two [place] cystoscope placed per urethra. No abnormalities noted. Retrograde examination performed on the left side which shows distal filling defect within 1 in of the ureteric orifice. A sensor guidewire was placed. Dilatation of the left ureteric orifice was performed with a [place] dilator under fluoroscopic guidance. A rigid ureteroscope was placed alongside the wire and the stone was encountered. Laser was performed the stone was broken into multiple small pieces. A flat wire basket would used to remove fragments and these were sent for analysis. When all fragments had been removed the rigid ureteral scope was removed. A 6 [place] by 24 cm double-J stent was placed with good curl seen in the bladder in and in the renal pelvis. She tolerated the procedure well was extubated in the operating room and transferred in a stable condition to the recovery area. Pathology: Stones Drains: 6 [place] by 24 cm double-J
[2020-07-02 11:45] VITALS: BP 142/91; PULSE 90; RESP 17; O2SAT 98
[2020-07-02 11:50] VITALS: BP 137/80; PULSE 122; RESP 16; O2SAT 97
[2020-07-02 11:55] VITALS: BP 139/89; PULSE 106; RESP 18; O2SAT 100
[2020-07-02] MEDS: Acetaminophen 325 MG TABLET 650 MG PO (12:02)
[2020-07-02] MEDS: Phenazopyridine HCL 100 MG TABLET PO (12:02)
[2020-07-02 12:10] VITALS: BP 136/97; PULSE 106; RESP 17; O2SAT 100
[2020-07-05 03:31] LABS: Stone Source LEFT URETERAL STONE
== END 2020-07-02 12:55 | disposition home or self-care (01) ==
PROVIDERS: Anesthesiology; PCP Internal Medicine; Visit Provider Urology
PROC: (CPT 52356; principal; 2020-07-02 09:40)
DX: N13.2 Hydronephrosis with renal and ureteral calculous obstruction (principal); E66.01 Morbid (severe) obesity due to excess calories; Z68.41 Body mass index [BMI] 40.0-44.9, adult
CPT/HCPCS: 52356; 81025; 82365; 88305; C1769; C2617; J1100; J2250; J2405; J2765; J3010; Q9967

== ENCOUNTER → 2020-07-10 12:56 | Outpatient (BNVA) | payer OTHER, SELFPAY | PROVIDERS: PCP Internal Medicine; Visit Provider Urology | DX: Z13.89 Encounter for screening for other disorder (principal) | CPT/HCPCS: 99212 ==

== ENCOUNTER → 2020-08-09 08:34 | Outpatient (BNVA) | payer OTHER, SELFPAY | PROVIDERS: PCP Internal Medicine; Visit Provider Advanced Practice Midwife | DX: Z30.49 Encounter for surveillance of other contraceptives (principal) | CPT/HCPCS: 99212 ==

== ENCOUNTER 2020-08-20 15:14 | Outpatient (REF) | payer OTHER, SELFPAY ==
--- NOTE | ~2020-08-20 | US_ITS ---
EXAMINATION: US RETROPERITONEAL LIMITED (RENAL ONLY) CLINICAL INFORMATION: Calculus of kidney. COMPARISON: CT abdomen and pelvis 06/23/2020. Renal ultrasound with bladder 11/07/2018. Renal ultrasound 10/11/2018. TECHNIQUE: Real-time imaging of the kidneys. FINDINGS: RIGHT KIDNEY: 11.8 x 4.7 x 5.4 cm (SAG x AP x TRV). The kidney is normal in size, contour, and echogenicity. Renal cortical thickness is normal. No calculi or focal parenchymal lesions. No hydronephrosis. LEFT KIDNEY: 12.0 x 6.1 x 6.6 cm (SAG x AP x TRV). The kidney is normal in size, contour, and echogenicity. Renal cortical thickness is normal. No calculi or focal parenchymal lesions. No hydronephrosis. Liver echotexture is increased. US/US renal BI IMPRESSION: No stone seen. Previously identified left hydronephrosis has resolved.
== END 2020-08-20 15:15 | disposition home or self-care (01) ==
LOC: HO.US 15:14
PROVIDERS: PCP Internal Medicine; Visit Provider Urology
DX: N13.2 Hydronephrosis with renal and ureteral calculous obstruction (principal)
CPT/HCPCS: 76775

== ENCOUNTER 2020-09-04 08:08 | Outpatient (REF) | payer OTHER, SELFPAY ==
[2020-09-06 16:42] LABS: HPV mRNA E6/E7 rflx Not Detected (Not Detected)
== END 2020-09-04 08:09 | disposition home or self-care (01) ==
LOC: HO.LAB 08:08
PROVIDERS: PCP Internal Medicine; Visit Provider Advanced Practice Midwife
DX: Z01.419 Encounter for gynecological examination (general) (routine) without abnormal findings (principal); N13.2 Hydronephrosis with renal and ureteral calculous obstruction; Z87.891 Personal history of nicotine dependence
CPT/HCPCS: 87624; 88142

== ENCOUNTER 2021-05-23 13:43 | Outpatient (REF) | payer OTHER, SELFPAY ==
--- NOTE | ~2021-05-23 | US_ITS ---
EXAMINATION: US RETROPERITONEAL LIMITED (RENAL ONLY) CLINICAL INFORMATION: Hydronephrosis with renal and ureteral calculus obstruction. COMPARISON: Renal ultrasound 08/20/2020 and 11/07/2018. CT abdomen and pelvis 06/23/2020. TECHNIQUE: Real-time imaging of the kidneys. FINDINGS: RIGHT KIDNEY: 11.9 x 4.5 x 6.7 cm (SAG x AP x TRV). The kidney is normal in size, contour, and echogenicity. Renal cortical thickness is normal. No calculi or focal parenchymal lesions. No hydronephrosis. LEFT KIDNEY: 12.2 x 5.7 x 5.0 cm (SAG x AP x TRV). The kidney is normal in size, contour, and echogenicity. Renal cortical thickness is normal. No calculi or focal parenchymal lesions. No hydronephrosis. US/US renal BI IMPRESSION: Unremarkable renal ultrasound.
== END 2021-05-23 13:44 | disposition home or self-care (01) ==
LOC: HO.US 13:43
PROVIDERS: PCP Internal Medicine; Visit Provider Urology
DX: N13.2 Hydronephrosis with renal and ureteral calculous obstruction (principal)
CPT/HCPCS: 76775

== ENCOUNTER → 2021-05-30 15:05 | Outpatient (BNVA) | payer OTHER, SELFPAY | PROVIDERS: PCP Internal Medicine | DX: N13.2 Hydronephrosis with renal and ureteral calculous obstruction (principal) | CPT/HCPCS: 99212 ==

== ENCOUNTER → 2021-09-06 07:57 | Outpatient (BNVA) | payer OTHER, SELFPAY | PROVIDERS: PCP Internal Medicine; Visit Provider Advanced Practice Midwife | DX: Z13.89 Encounter for screening for other disorder (principal) ==

== ENCOUNTER 2021-12-30 15:18 | Outpatient (REF) | payer OTHER, SELFPAY ==
[2022-01-01 12:32] LABS: CT PCR NOT DETECTED (Not Detect.); NG PCR NOT DETECTED (Not Detect.)
== END 2021-12-30 15:19 | disposition home or self-care (01) ==
LOC: HO.LAB 15:18
PROVIDERS: PCP Internal Medicine; Visit Provider Obstetrics & Gynecology
DX: Z30.09 Encounter for other general counseling and advice on contraception (principal)
CPT/HCPCS: 87491; 87591; 99212

== ENCOUNTER → 2022-01-09 13:12 | Outpatient (BNVA) | payer OTHER, SELFPAY | PROVIDERS: PCP Internal Medicine; Visit Provider Obstetrics & Gynecology | DX: Z30.430 Encounter for insertion of intrauterine contraceptive device (principal) | CPT/HCPCS: 58300; J7298 ==

== ENCOUNTER 2022-02-20 15:25 | Outpatient (REF) | payer OTHER, SELFPAY ==
--- NOTE | ~2022-02-20 | US_ITS ---
EXAMINATION: US RETROPERITONEAL LIMITED (RENAL ONLY) CLINICAL INFORMATION: Hydronephrosis with renal and ureteral calculus obstruction. COMPARISON: Ultrasound retroperitoneal limited (renal only) 05/23/2021 and 08/20/2020. CT abdomen and pelvis without contrast 06/23/2020. TECHNIQUE: Real-time imaging of the kidneys. FINDINGS: RIGHT KIDNEY: 13.6 x 6.2 x 6.3 cm (SAG x AP x TRV). The kidney is normal in size, contour, and echogenicity. Renal cortical thickness is normal. No calculi or focal parenchymal lesions. No hydronephrosis. LEFT KIDNEY: 12.5 x 5.2 x 6.4 cm (SAG x AP x TRV). The kidney is normal in size, contour, and echogenicity. Renal cortical thickness is normal. No calculi or focal parenchymal lesions. No hydronephrosis. US/US renal BI IMPRESSION: Normal renal ultrasound.
== END 2022-02-20 15:26 | disposition home or self-care (01) ==
LOC: HO.US 15:25
DX: N13.2 Hydronephrosis with renal and ureteral calculous obstruction (principal); Z30.431 Encounter for routine checking of intrauterine contraceptive device; Z32.02 Encounter for pregnancy test, result negative
CPT/HCPCS: 76775; 81025; 99212

== ENCOUNTER 2022-03-13 08:42 | Outpatient (REF) | payer OTHER, SELFPAY ==
[2022-03-14 09:12] LABS: Follicle Stimulating Hormone 4.7 mIU/mL
[2022-03-20 22:47] LABS: Estradiol Free 0.48 pg/mL; Estradiol, Ultrasensitive 24 pg/mL
== END 2022-03-13 08:43 | disposition home or self-care (01) ==
LOC: HO.LAB 08:42
PROVIDERS: Visit Provider Advanced Practice Midwife
DX: R23.2 Flushing (principal)
CPT/HCPCS: 36415; 82670; 82681; 83001; 99212

== ENCOUNTER 2022-07-23 12:47 | Outpatient (REF) | payer OTHER, SELFPAY ==
--- NOTE | ~2022-07-23 | US_ITS ---
EXAMINATION: US RETROPERITONEAL LIMITED (RENAL ONLY) CLINICAL INFORMATION: Hydronephrosis with renal and ureteral calculus obstruction. COMPARISON: Ultrasound retroperitoneal limited (renal only) 02/20/2022 and 05/23/2021. CT abdomen and pelvis without contrast 06/23/2020. TECHNIQUE: Real-time imaging of the kidneys. FINDINGS: RIGHT KIDNEY: 12.6 x 5.9 x 6.5 cm (SAG x AP x TRV). The kidney is normal in size, contour, and echogenicity. Renal cortical thickness is normal. No calculi or focal parenchymal lesions. No hydronephrosis. LEFT KIDNEY: 11.7 x 6.1 x 5.4 cm (SAG x AP x TRV). The kidney is normal in size, contour, and echogenicity. Renal cortical thickness is normal. No calculi or focal parenchymal lesions. No hydronephrosis. Incidental note made of hepatic steatosis. On prior CT, the liver was enlarged at 19.8 cm and demonstrated attenuation consistent with hepatic steatosis. US/US renal BI IMPRESSION: 1. Normal-appearing kidneys. 2. Incidentally noted hepatic steatosis.
== END 2022-07-23 12:48 | disposition home or self-care (01) ==
LOC: HO.US 12:47
DX: N13.2 Hydronephrosis with renal and ureteral calculous obstruction (principal)
CPT/HCPCS: 76775

== ENCOUNTER → 2022-08-15 09:27 | Outpatient (BNVA) | payer OTHER, SELFPAY | PROVIDERS: PCP Family Medicine; Visit Provider Nurse Practitioner Family | DX: N20.0 Calculus of kidney (principal) | CPT/HCPCS: 99212 ==

== ENCOUNTER → 2023-01-16 10:49 | Outpatient (BNVA) | payer OTHER, SELFPAY | PROVIDERS: PCP Family Medicine; Visit Provider Physician Assistant Surgical ==

== ENCOUNTER 2023-01-21 08:15 | Outpatient (AMB) | payer OTHER, SELFPAY ==
--- NOTE | 2023-01-21 09:11 | MHC.OFFVISWM ---
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 Allergies No Known Allergies [No Known Allergies*] Allergy (Verified 01/21/23 09:12) Medication List - Last Reconciled 01/21/23 by Fabián Bolden MD blue-green algae (bulk) (Spirulina powder) ea miscellaneous levonorgestrel (Mirena) intrauterine multivitamin 1 tab PO DAILY omega-3 acid ethyl esters 1 cap PO DAILY omeprazole 20 mg PO DAILY pyridoxine (vitamin B6) 50 mg (1/2 x 100 mg) PO DAILY 90 days HPI 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 HPI Details Start time: 9.05am, End time: 9.58am ?I spent 48 minutes speaking with the patient on the phone plus an additional 5 minutes reviewing and updating records for a total of 53 minutes HPI Comments History of Present Illness Details Previous weight loss efforts: Weight Watchers, Herbalife, exercise, self diets Wakes up: 6.30am, Sleeps: 11pm Breakfast: x3-4/wk at 9am (scrambled eggs with toast, or Nutro-plus protein shake) Lunch: 11.30am-3pm (protein shake, or chicken salad) Dinner: 5.30pm-8pm Snacks: 3-4pm ([place] mix, dried fruits, or fresh fruits, crackers), 9pm (same as afternoon) Exercise: none Fluids: Coffee 1 cup every other day (caramel creamer with oatmilk), tea: none, soda: none, juice: none, ETOH: 1/month [facility] Medical History (Updated 01/21/23 @ 09:15 by Fabián Bolden MD) GERD (gastroesophageal reflux disease) Morbid obesity Ureteral stone with hydronephrosis Morbid obesity with BMI of 40.0-44.9, adult Surgical History No history of previous surgery Family History Maternal Aunt Breast cancer Social History (Updated 01/16/23 @ 11:01 by YUSUF Duarte Alcohol intake: current Alcohol intake frequency: holidays/special occasions only Patient Tobacco Use Status: Never used Tobacco Gender identity: Female Female Reproductive History Menstrual Age of Menarche: 10 Assessment & Plan Assessment & Plan (1) Morbid obesity: Code(s): E66.01 - Morbid (severe) obesity due to excess calories Plan: 1.? Plan for lap sleeve gastrectomy. If diaphragmatic or ventral hernias are present at time of surgery, these will be repaired laparoscopically as well. Risks and complications were discussed in detail including possible conversion to an open procedure, anastomotic leak, bleeding requiring transfusion, small bowel obstruction, , DVT and pulmonary embolism, cardiac, or pulmonary complications, as group home complications such as anastomotic ulcer, insufficient weight loss and vitamin deficiencies. I emphasized the importance of close follow-up, adherence to instructions and good communication. 2. Nutritional counseling. Start with 2 protein shakes (ONE scoop EACH in 8oz low fat unsweetened almond milk each) at 7am-9am and 10am-12pm, 2 protein bars ([employer] protein bars, buy at hospital's gift shop or online) at 1pm-3pm and 4pm-6pm, dinner at 7pm (10 forks of protein and 10 forks of salad/vegetables) and one more protein bar after dinner at 9pm-11pm. Meal to include lean meat (beef, fish, pork, turkey, chicken), or ecuadorean yogurt, or egg whites, or beans with a salad with olive oil and fruits (berries, pears, apples, kiwi). Avoid salt, breads, potatoes, rice, pasta, desserts. 3. Each shake would be drunk slowly, like coffee in a period of 2 hours. 4. Cut each bar in 4 pieces and eat each piece in 30min ?to make each bar last 2 hours. 5. I emphasized the importance of measuring accurately the food portion and measure it when serving the food in plate 6. The meal portions include 10 full-size forks of meat and 10 full-size forks of salad. You always eat the meat portion but you can replace up to 5 forks for salad/vegetables with rice, potatoes or pasta, or a fruit ?if you like. The less you do it the better weight loss will be. 7. One full-size fork is what it can be scooped on the fork without falling aside and not what can be bit with the fork. Use regular forks like those you find in a typical restaurant. 8.? Please send me weight measurements as soon as possible and then once a week. Always include your diet and exercise plan. Alternatively come weekly at the office for weight checks and send me the measurements. 9. Start walking outside daily, tracking calories with a goal of 300 calories per day, daily. Goal is to burn 2000 calories per week on exercise, which means either 300 calories daily, or 400 calories 5 days per week, or 500 calories 4 days per week, or 650 calories 3 days per week. 10. Alternatively purchase a stationary bike, elliptical or treadmill at home that can track calories. Let me know if you do so I can give you an exercise plan. 11.?It is important of avoiding and for at least 18 months postoperatively and has been discussed at the infosession. 12. Goal is to lose at least 1.5-2lbs per week 13. Goal to lose 10% of your weight before surgery, which is about 27lbs. Ultimate weight goal: 246lbs before surgery 14. Please follow the diet plan exactly without any change. If you don't like something about the plan or you feel hungry you need to communicate with me so I can help you revise the plan. You should not change the plan yourself. (2) GERD (gastroesophageal reflux disease): Code(s): K21.9 - Gastro-esophageal reflux disease without esophagitis (3) Bilateral nephrolithiasis: Code(s): N20.0 - Calculus of kidney Orders: Orders Lipid Panel Today E66.01 - Morbid (severe) obesity due to excess calories, K21.9 - Gastro-esophageal reflux disease without esophagitis, N20.0 - Calculus of kidney Vitamin B12 and Folate Today E66.01 - Morbid (severe) obesity due to excess calories, K21.9 - Gastro-esophageal reflux disease without esophagitis, N20.0 - Calculus of kidney Zinc Today E66.01 - Morbid (severe) obesity due to excess calories, K21.9 - Gastro-esophageal reflux disease without esophagitis, N20.0 - Calculus of kidney Comprehensive Met. Panel Today E66.01 - Morbid (severe) obesity due to excess calories, K21.9 - Gastro-esophageal reflux disease without esophagitis, N20.0 - Calculus of kidney Vitamin B1 Today E66.01 - Morbid (severe) obesity due to excess calories, K21.9 - Gastro-esophageal reflux disease without esophagitis, N20.0 - Calculus of kidney Vitamin A Today E66.01 - Morbid (severe) obesity due to excess calories, K21.9 - Gastro-esophageal reflux disease without esophagitis, N20.0 - Calculus of kidney PTHI Today E66.01 - Morbid (severe) obesity due to excess calories, K21.9 - Gastro-esophageal reflux disease without esophagitis, N20.0 - Calculus of kidney TSH reflex Free T4 Today E66.01 - Morbid (severe) obesity due to excess calories, K21.9 - Gastro-esophageal reflux disease without esophagitis, N20.0 - Calculus of kidney H Pylori Breath Test Today E66.01 - Morbid (severe) obesity due to excess calories, K21.9 - Gastro-esophageal reflux disease without esophagitis, N20.0 - Calculus of kidney Hemoglobin A1c Today E66.01 - Morbid (severe) obesity due to excess calories, K21.9 - Gastro-esophageal reflux disease without esophagitis, N20.0 - Calculus of kidney US abdomen comp w elastography Today E66.01 - Morbid (severe) obesity due to excess calories, K21.9 - Gastro-esophageal reflux disease without esophagitis, N20.0 - Calculus of kidney ECG 12 lead EKG Today E66.01 - Morbid (severe) obesity due to excess calories, K21.9 - Gastro-esophageal reflux disease without esophagitis, N20.0 - Calculus of kidney Insulin Today E66.01 - Morbid (severe) obesity due to excess calories, K21.9 - Gastro-esophageal reflux disease without esophagitis, N20.0 - Calculus of kidney IRON PROFILE Today E66.01 - Morbid (severe) obesity due to excess calories, K21.9 - Gastro-esophageal reflux disease without esophagitis, N20.0 - Calculus of kidney Complete Blood Count Auto Diff Today E66.01 - Morbid (severe) obesity due to excess calories, K21.9 - Gastro-esophageal reflux disease without esophagitis, N20.0 - Calculus of kidney C Reactive Protein Today E66.01 - Morbid (severe) obesity due to excess calories, K21.9 - Gastro-esophageal reflux disease without esophagitis, N20.0 - Calculus of kidney Ferritin Today E66.01 - Morbid (severe) obesity due to excess calories, K21.9 - Gastro-esophageal reflux disease without esophagitis, N20.0 - Calculus of kidney Vitamin D 25-OH Total Today E66.01 - Morbid (severe) obesity due to excess calories, K21.9 - Gastro-esophageal reflux disease without esophagitis, N20.0 - Calculus of kidney XR chest 2V Today E66.01 - Morbid (severe) obesity due to excess calories, K21.9 - Gastro-esophageal reflux disease without esophagitis, N20.0 - Calculus of kidney FL upper GI w air Today E66.01 - Morbid (severe) obesity due to excess calories, K21.9 - Gastro-esophageal reflux disease without esophagitis, N20.0 - Calculus of kidney Referrals Behavioral Health Referral E66.01 - Morbid (severe) obesity due to excess calories, K21.9 - Gastro-esophageal reflux disease without esophagitis, N20.0 - Calculus of kidney Nutrition/Dietitian Referral E66.01 - Morbid (severe) obesity due to excess calories, K21.9 - Gastro-esophageal reflux disease without esophagitis, N20.0 - Calculus of kidney Telehealth Telehealth Location of provider rendering services: practice address Location of patient: address on file Patient Identification confirmed using: Name, : Yes Telehealth method: voice only Patient verbally consented to treatment: Yes Patient verbally consented to billing insurance company: Yes Patient informed of any privacy concerns related to visit: Yes Minutes spent on Phone/Video with Pt.: 53 Coding Level of Care Code Tele New Pt Level 4 (24998) Diagnoses Morbid obesity E66.01 GERD (gastroesophageal reflux disease) K21.9 Bilateral nephrolithiasis N20.0 Time Spent (min) 53
[2023-01-21 09:23] VITALS: BMI 44.1
== END 2023-01-21 09:59 | disposition home or self-care (01) ==
LOC: HO.HBS 08:15
PROVIDERS: PCP Family Medicine; Visit Provider Surgery
DX: E66.01 Morbid (severe) obesity due to excess calories (principal); Z68.41 Body mass index [BMI] 40.0-44.9, adult
CPT/HCPCS: 99204

== ENCOUNTER → 2023-01-21 08:15 | Outpatient (BNVA) | payer OTHER, SELFPAY | PROVIDERS: PCP Family Medicine; Visit Provider Surgery ==

== ENCOUNTER 2023-01-22 09:14 | Outpatient (REF) | payer OTHER, SELFPAY ==
[2023-01-22 09:48] LABS: MANUAL DIFF FLAG NO
[2023-01-22 10:36] LABS: Basophils Percent Auto 0.2 % (0-2); Eosinophils Absolute Auto 0.1 X10*3/uL (0.0-0.4); Eosinophils Percent Auto 2.1 % (0-4); Hemoglobin 14.5 g/dl (12.0-16.0); Imm Gran Abs Auto 0.01 X10*3/uL (0.00-0.03); Imm Gran Pct Auto 0.2 % (0.0-0.4); Lymphocytes Absolute Auto 2.7 X10*3/uL (1.2-4.9); Lymphocytes Percent Auto 46.4 % (20-40); Mean Corpuscular HGB Conc 33.7 g/dl (31.0-35.0); Mean Platelet Volume 11.6 fL (9.4-12.3); Monocytes Absolute Auto 0.4 X10*3/uL (0.1-1.2); Monocytes Percent Auto 7.6 % (2-11); Neutrophils Absolute Auto 2.5 x10*3/uL (2.0-8.3); Neutrophils Percent Auto 43.5 % (45-73); Platelet Count 230 X10*3/uL (160-400); Red Blood Count 4.83 X10*6/uL (4.20-5.50); Red Cell Distribution Width 12.2 % (11.0-16.0); White Blood Count 5.8 X10*3/uL (4.8-10.8)
[2023-01-22 11:09] LABS: Estimated Average Glucose 103 mg/dL; Hemoglobin A1c % 5.2 % (<6.0)
[2023-01-22 11:39] LABS: Alanine Aminotransferase 33 U/L (0-31); Albumin Level 4.5 g/dL (3.5-5.0); Alkaline Phosphatase 56 U/L (39-117); Anion Gap 10 (12-20); Aspartate Amino Transferase 23 U/L (5-31); Bilirubin Total 0.6 mg/dL (0.0-1.0); Blood Urea Nitrogen 11 mg/dL (9-16); Calcium 9.5 mg/dL (8.4-10.2); Carbon Dioxide 27 mmol/L (22-29); Chloride 108 mmol/L (96-108); Cholesterol 181 mg/dL (<200); Estimated Glomerular Filt Rate > 60; Glucose Random 98 mg/dL (60-115); HDL Cholesterol 43 mg/dL (>40); Iron 138 mcg/dL (30-160); LDL Cholesterol Calculated 108 mg/dL (<100); Percent Iron Saturation 49 % (15-50); Potassium 4.4 mmol/L (3.3-5.1); Sodium 141 mmol/L (135-145); Total Iron Binding Capacity 283 mcg/dL (228-428); Total Protein 7.4 g/dL (6.5-8.0); Triglycerides 154 mg/dL (<150); Unsaturated Iron Binding 145 ug/dL
[2023-01-22 11:42] LABS: Ferritin 47 ng/mL (10-122); Insulin 14 uU/mL (2-29); TSH reflex Free T4 1.08 uIU/mL (0.32-4.0); Vitamin D 25-OH Total 34.2 ng/mL (>30)
[2023-01-22 11:44] LABS: Folate 12.9 ng/mL (> or = 4.0); Vitamin B12 466 pg/mL (200-900)
[2023-01-26 13:59] LABS: Calcium (PTHI) 9.4 mg/dL (8.6-10.2); PTHI 72 pg/mL (16-77)
[2023-01-27 02:09] LABS: Zinc 92 mcg/dL (60-130)
[2023-01-27 15:33] LABS: Vitamin B1 10 nmol/L (8-30)
[2023-01-29 21:23] LABS: Vitamin A 50 mcg/dL (38-98)
== END 2023-01-22 09:15 | disposition home or self-care (01) ==
LOC: HO.LAB 09:14
PROVIDERS: PCP Family Medicine; Visit Provider Surgery
DX: N20.0 Calculus of kidney (principal); E66.01 Morbid (severe) obesity due to excess calories; K21.9 Gastro-esophageal reflux disease without esophagitis
CPT/HCPCS: 36415; 80053; 80061; 82306; 82607; 82728; 82746; 83036; 83525; 83540; 83970; 84425; 84443; 84590; 84630; 85025; 86140

== ENCOUNTER → 2023-02-09 09:09 | Outpatient (REF) | payer OTHER, SELFPAY ==
--- NOTE | ~2023-02-09 | XR_ITS ---
EXAMINATION: XR CHEST CLINICAL INFORMATION: Reason for Exam E66.01 - Morbid (severe) obesity due to excess calories COMPARISON: None TECHNIQUE: 2 views of the chest FINDINGS: Lines and tubes: None. Clear lungs. No pleural effusion. No pneumothorax. Normal cardiomediastinal silhouette. XR/XR chest 2V IMPRESSION: * Clear lungs.
--- NOTE | 2023-02-09 09:13 | ECG_ITS ---
Test Reason : e66.01 Blood Pressure : / mmHG Vent. Rate : 073 BPM Atrial Rate : 073 BPM P-R Int : 138 ms QRS Dur : 070 ms QT Int : 368 ms P-R-T Axes : 042 076 032 degrees QTc Int : 405 ms Normal sinus rhythm with sinus arrhythmia Cannot rule out Anterior infarct , age undetermined Abnormal ECG No previous ECGs available Referred By: Fabián Bolden Electronically Signed By:DEVYN MONCADA
== END ==
LOC: HO.CARD 09:09
PROVIDERS: Visit Provider Surgery
DX: E66.01 Morbid (severe) obesity due to excess calories (principal); N20.0 Calculus of kidney; K21.9 Gastro-esophageal reflux disease without esophagitis
CPT/HCPCS: 71046; 93005

== ENCOUNTER 2023-02-10 13:03 | Outpatient (AMB) | payer OTHER, SELFPAY ==
--- NOTE | 2023-02-10 12:34 | A.OFFWM_ITS ---
Intake Intake Visit Reasons: VIDEO BH Intake Allergies No Known Allergies [No Known Allergies*] Allergy (Verified 01/21/23 09:12) [facility] Medical History (Updated 02/10/23 @ 13:05 by Lynda Arguello) GERD (gastroesophageal reflux disease) Morbid obesity Ureteral stone with hydronephrosis Morbid obesity with BMI of 40.0-44.9, adult Surgical History No history of previous surgery Family History Maternal Aunt Breast cancer Social History (Updated 01/16/23 @ 11:01 by Aditi Canseco [facility]) Alcohol intake: current Alcohol intake frequency: holidays/special occasions only Patient Tobacco Use Status: Never used Tobacco Gender identity: Female Female Reproductive History Menstrual Age of Menarche: 10 Behavioral Health Assessment Weight Management Therapy Therapy Notes Details Pt is looking to have weight loss surgery to help improve her health and quality of life. Pt has a history of therapy in the past and was also on medication for anxiety but not since October. Also reported mild depression in the past. Pt has no history of problems with drugs or alcohol. She has no history of inpatient psychiatric admissions. Presenting Concerns Referral Source provider Reason for referral weight loss surgery evaluation Precipitating Event obesity Living Situation Current Living Situation Own At risk of losing current housing? No Satisfied with current living situation? Yes Comments Pt lives with her and three children, mother in law and brother in law and sister n law. Food/Weight/Diet Expectations of change weight loss and maintenance History/Relationship with food She reported that she will often binge in the past, she will skip meals and then over eat. She will have dinner and then eat until bedtime. Also takeout twice a week, food on the go depending on her job. History/Relationship with weight Pt stated that she has been struggling with her weight her whole life. She is currently at her heaviest. 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 She reported that she has struggled with consistency. Binge Eating Do you frequently eat large amounts of food in short periods of time, not feeling physically hungry? Yes Do you feel out of control when you eat a large amount of food in a short period of time? No Do you eat large amounts of food rapidly and typically alone? Yes Night Eating Do you wake up at least once during the night to eat? No If you wake up in the night, do you find that it is necessary to eat something in order to fall back asleep? No Do you have little or no appetite in the morning and feel very hungry in the evening, often overeating between dinner and when you go to bed? Yes Social History Family history and relationship Patient is and has two children with her and also raises her step daughter. She reported some trauma due to her father being an alcoholic. Her parents when she was 10 years old and she had to move from [place] to [place] during middle school and reported that was a huge transition. 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 Developmental history and status no issues reported. Social support , mom, sisters, friend group Cultural/Ethnic information Legal Involvement and History Current or historical involvement with the legal system? none reported Education Highest grade completed masters in social work Preferred learning style Auditory, Verbal, Written, Learn by doing and Visual Currently enrolled in educational program? No Interested in further educational program? 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 No Financial Situation Describe current financial situation Comfortable and Occasional struggle Financial assistance? None Service Service? No Mental Health and Addiction Treatment Current/Past substance abuse? No Current/Past addictive behavior concerns? No Pain Screening Current pain? No Pain in the last few months? No Medications Is the patient compliant with medications? Yes Does the patient have Ibarra Guardian in place? Not applicable Does the patient use complimentary health approaches? Yes Trauma/Abuse History History of trauma? Yes Questionnaires PHQ-9 Over the last 2 weeks, how often have you been bothered by any of the following problems? 1. Little interest or pleasure in doing things: not at all 2. Feeling down, depressed, or hopeless: several days 3. Trouble falling or staying asleep, or sleeping too much: several days 4. Feeling tired or having little energy: several days 5. Poor appetite or overeating: several days 6. Feeling bad about yourself - or that you are a failure or have let yourself or your family down: not at all 7. Trouble concentrating on things, such as reading the newspaper or watching television: more than half the days 8. Moving or speaking so slowly that other people could have noticed. Or the opposite - being so fidgety or restless that you have been moving around a lot more than usual: not at all 9. Thoughts that you would be better off or of hurting yourself in some way: not at all Total score: 6 Source: Developed by Drs. Eze Carmichael, Brianna Gallagher, Jose Masters and colleagues, with an educational yumi from [employer]. Binge Eating Scale Group 1 A. I don't feel self-conscious about my wt. or body size when I'm with others. B. I feel concerned about how I look to others, but it normally does not make me fell disappointed with myself C. I do get self-conscious about my appearance and wt. which makes me feel disappointed in myself. D. I feel very self-conscious about my wt. and frequently I feel intense shame and disgust for myself. I try to avoid social contacts because of my self- consciousness. Response Group 1: C Group 2 A. I don't have any difficulty eating slowly in the proper manner. B. Although I seem to gobble down foods, I don't end up feeling stuffed because of eating to much. C. At times, I tend to eat quickly and then, I feel uncomfortably full afterwards. D. I have the habit of bolting down my food, without really chewing it. When this happens I usually feel uncomfortably stuffed because I've eaten to much. Response Group 2: C Group 3 A. I feel capable to control my eating urges when I want to. B. I feel like I have failed to control my eating more than the average person. C. I feel utterly helpless when it comes to feeling in control of my eating urges. D. Because I feel so helpless about controlling my eating I have become very desperate about trying to get control. Response Group 3: B Group 4 A. I don't have the habit of eating when I'm bored. B. I sometimes eat when I'm bored, but often I'm able to get busy and get my mind off food. C. I have a regular habit of eating when I'm bored, but occasionally, I can use some other activity to get my mind off eating. D. I have a strong habit of eating when I'm bored. Nothing seems to help me breath the habit. Response Group 4: A Group 5 A. I'm usually physically hungry when I eat something. B. Occasionally, I eat something on impulse even though I really am not hungry. C. I have the regular habit of eating foods, that I might not really enjoy, to satisfy a hungry feeling even though physically, I don't need the food. D. Although I'm not physically hungry, I get a hungry feeling in my mouth that only seems to be satisfied when I eat a food, like sandwich, that fills my mouth. Sometimes, when I eat the food to satisfy my mouth hunger, I then spit the food out so I won't gain weight. Response Group 5: B Group 6 A. I don't feel any guilt or self-hate after I overeat. B. After I overeat, occasionally I feel guilt or self-hate. C. Almost all the time I experience strong guilt or self-hate after I overeat. Response Group 6: B Group 7 A. I don't lose total control of my eating when dieting even after periods when I overeat. B. Sometimes when I eat a forbidden food on a diet, I feel like I blew it and eat even more. C. Frequently, I have the habit of saying to myself, I've blown it now, why not go all the way, when I overeat on a diet. When that happens I eat more. D. I have a regular habit of starting a strict diets for myself but I break the diets by going on an eating binge. My life seems to be either a feast or famine. Response Group 7: D Group 8 A. I rarely eat so much food that I feel uncomfortably stuffed afterwards. B. Usually about once a month, I each such a quantity of food, I end up feeling very stuffed. C. I have regular periods during the month when I eat large amounts of food, either at mealtime or at snacks. D. I eat so much food that I regularly feel quite uncomfortable after eating and sometimes a bit nauseous. Response Group 8: A Group 9 A. My level of calorie intake does not go up very high or go down very low on a regular basis. B. Sometimes after I overeat, I will try to reduce my caloric intake to almost nothing to compensate for the excess calories I've eaten. C. I have a regular habit of overeating during the night. It seems that my routine is not to be hungry in the morning but overeat in the evening. D. In my adult years, I have had week-long periods where I practically starve myself. This follows periods when I overeat. It seems I live a life of either feast or famine. Response Group 9: A Group 10 A. I usually am able to stop eating when I want to. I know when enough is enough. B. Every so often, I experience a compulsion to eat which I can't seem to control. C. Frequently, I experience strong urges to eat which I seem unable to control, but at other times I can control my eating urges. D. I feel incapable of controlling urges to eat. I have a fear of not being able to stop eating voluntarily. Response Group 10: B Group 11 A. I don't have any problem stopping eating when I feel full. B. I usually can stop eating when I feel full but occasionally overeat leaving me feeling uncomfortably stuffed. C. I have a problem stopping eating once I start and usually I feel uncomfortably stuffed after I eat a meal. D. Because I have a problem not being able to stop eating when I want, I sometimes have to induce vomiting to relieve my stuffed feeling. Response Group 11: B Group 12 A. I seem to eat just as much when I'm with others, Family social gatherings as when I'm by myself. B. Sometimes, when I'm with other persons, I don't eat as much as I want to eat because I'm self-conscious about my eating. C. Frequently, I eat only a small amount of food when others are present, because I'm very embarrassed about my eating. D. I feel so ashamed about overeating that I pick times to overeat when I know no one will see me. I feel like a closet eater. Response Group 12: C Group 13 A. I eat three meals a day with only an occasional between meal snack. B. I eat 3 meals a day, but I also normally snack between meals. C. When I am snacking heavily, I get in the habit of skipping regular meals. D. There are regular periods when I seem to be continually eating, with no planned meals. Response Group 13: B Group 14 A. I don't think much about trying to control unwanted eating urges. B. At least some of the time, I feel my thoughts are pre-occupied with trying to control my eating urges. C. I feel that frequently I spend much time thinking about how much I ate or about trying not to eat anymore. D. It seems to me that most of my waking hours are pre-occupied by thoughts about eating or not eating. I feel like I'm constantly struggling not to eat. Response Group 14: B Group 15 A. I don't think about food a great deal. B. I have strong craving for food but they last only for brief periods of time. C. I have days when I can't seem to think about anything else but food. D. Most of my days seem to be pre-occupied with thoughts about food. I feel like I live to eat. Response Group 15: B Group 16 A. I usually know whether or not I'm physically hungry. I take the right portion of food to satisfy me. B. Occasionally, I feel uncertain about knowing whether or not I'm physically hungry. A these times it's hard to know how much food I should take to satisfy me. C. Even though I might know how many calories I should eat, I don't have any idea what is a normal amount of food for me. Response Group 16: B Binge Eating Score: 18 Score less than 17 Minimal Risk Score between 18-26 Moderate Risk Score between 27-46 High Risk Assessment & Plan Assessment & Plan (1) Adjustment disorder, unspecified: Code(s): F43.20 - Adjustment disorder, unspecified (2) Morbid obesity: Code(s): E66.01 - Morbid (severe) obesity due to excess calories Plan Pt does not have any serious mental health conditions that would be a barrier. She is cleared for surgery but will be seen again. Telehealth Telehealth Location of provider rendering services: other Location of patient: address on file Patient Identification confirmed using: Name, : Yes Telehealth method: video Patient verbally consented to treatment: Yes Patient verbally consented to billing insurance company: Yes Patient informed of any privacy concerns related to visit: Yes Minutes spent on Phone/Video with Pt.: 45 Coding Level of Care Code Tele Psy Diag Elenal ([id number]) Diagnoses Adjustment disorder, unspecified F43.20 Morbid obesity E66.01 Time Spent (min) 45
== END 2023-02-10 13:05 | disposition home or self-care (01) ==
LOC: HO.HBST 13:03
PROVIDERS: PCP Family Medicine; Visit Provider Counselor Mental Health
DX: F43.20 Adjustment disorder, unspecified (principal); E66.01 Morbid (severe) obesity due to excess calories
CPT/HCPCS: 90791

== ENCOUNTER → 2023-02-10 13:03 | Outpatient (BNVA) | payer OTHER, SELFPAY | PROVIDERS: PCP Family Medicine; Visit Provider Counselor Mental Health ==

== ENCOUNTER 2023-02-13 12:23 | Outpatient (REF) | payer OTHER, SELFPAY ==
--- NOTE | ~2023-02-13 | US_ITS ---
EXAMINATION: US RETROPERITONEAL LIMITED (RENAL ONLY) CLINICAL INFORMATION: Calculus of kidney. COMPARISON: Ultrasound retroperitoneal limited (renal only) 07/23/2022 and 02/20/2022. CT abdomen and pelvis without contrast 06/23/2020. TECHNIQUE: Real-time imaging of the kidneys. Limited visualization due to bowel gas. FINDINGS: RIGHT KIDNEY: 12.5 x 5.4 x 6.3 cm (SAG x AP x TRV). No hydronephrosis. No renal calculi. Renal cortical thickness is normal. Limited visualization. LEFT KIDNEY: 12.1 x 6.1 x 5.4 cm (SAG x AP x TRV). No hydronephrosis. No renal calculi. Renal cortical thickness is normal. Limited visualization. ADDITIONAL FINDINGS: Incidental note made on very limited views of the liver of increase in heterogeneity and echogenicity of the liver, characteristic of primary hepatocellular disease, possibly due to hepatic steatosis. US/US renal BI IMPRESSION: 1. No hydronephrosis. No renal calculi. 2. Incidental note made on very limited views of the liver of increase in heterogeneity and echogenicity of the liver, characteristic of primary hepatocellular disease, possibly due to hepatic steatosis.
== END 2023-02-13 12:24 | disposition home or self-care (01) ==
LOC: HO.US 12:23
PROVIDERS: PCP Family Medicine; Visit Provider Nurse Practitioner Family
DX: N20.0 Calculus of kidney (principal)
CPT/HCPCS: 76775

== ENCOUNTER 2023-02-20 08:41 | Outpatient (AMB) | payer OTHER, SELFPAY ==
--- NOTE | 2023-02-20 10:09 | MHC.OFFVISWM ---
Intake VS Expanded 02/20/23 10:20 Height 5 ft 6 in Weight 264 lb 4 oz BMI 42.6 Intake Visit Reasons: TV Follow Up SWL - 1ST Allergies No Known Allergies [No Known Allergies*] Allergy (Verified 01/21/23 09:12) HPI TV Follow Up SWL - 1ST HPI Details Start time: 10.06am, End time: 10.26am ?I spent 15 minutes speaking with the patient on the phone plus an additional 5 minutes reviewing and updating records for a total of 20 minutes HPI Comments History of Present Illness Details Overall weight loss: 8.6lbs, or 3.15% TBWL Is doing 2 Nutriplus protein shakes (one scoop in 8oz almond milk), 3 Celebrate protein bars and one meal (10 forks of protein and 10 forks of salad of vegetables) Exercise: walking outside 4 times per week [facility] Medical History (Updated 02/13/23 @ 19:27 by Fabián Bolden MD) GERD (gastroesophageal reflux disease) Morbid obesity Ureteral stone with hydronephrosis Morbid obesity with BMI of 40.0-44.9, adult Surgical History No history of previous surgery Family History Maternal Aunt Breast cancer Social History (Updated 01/16/23 @ 11:01 by Aditi Canseco [facility]) Alcohol intake: current Alcohol intake frequency: holidays/special occasions only Patient Tobacco Use Status: Never used Tobacco Gender identity: Female Female Reproductive History Menstrual Age of Menarche: 10 Assessment & Plan Assessment & Plan (1) Morbid obesity: Code(s): E66.01 - Morbid (severe) obesity due to excess calories Plan: 1. Continue same nutritional plan of 2 Nutriplus protein shakes (one scoop in 8oz almond milk), 3 Celebrate protein bars and one meal (10 forks of protein and 10 forks of salad of vegetables) 2. Exercise: continue walking outside but increase to 5 times per week. Track the calories to be 400 calories each time 3. Alternatively purchase a stationary bike, elliptical or treadmill at home that can track calories. Let me know if you do so I can give you an exercise plan. 4. Continue to send me weight measurements weekly on Telehealth Telehealth Location of provider rendering services: practice address Location of patient: address on file Patient Identification confirmed using: Name, : Yes Telehealth method: voice only Patient verbally consented to treatment: Yes Patient verbally consented to billing insurance company: Yes Patient informed of any privacy concerns related to visit: Yes Minutes spent on Phone/Video with Pt.: 20 Coding Level of Care Code Tele Est Pt Level 3 (87530) Diagnoses Morbid obesity E66.01 Time Spent (min) 20
[2023-02-20 10:20] VITALS: BMI 42.6
== END 2023-02-20 10:26 | disposition home or self-care (01) ==
LOC: HO.HBS 08:41
PROVIDERS: PCP Family Medicine; Visit Provider Surgery
DX: E66.01 Morbid (severe) obesity due to excess calories (principal); Z68.41 Body mass index [BMI] 40.0-44.9, adult
CPT/HCPCS: 99213

== ENCOUNTER → 2023-02-20 08:41 | Outpatient (BNVA) | payer OTHER, SELFPAY | PROVIDERS: PCP Family Medicine; Visit Provider Surgery ==

== ENCOUNTER 2023-03-04 08:54 | Outpatient (AMB) | payer OTHER, SELFPAY ==
--- NOTE | 2023-03-04 08:57 | MHC.OFFVIS ---
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 Scribed for MARY Jarrett by Deanna Rosales medical director occupational health, on 03/04/2023 at 9:03 am, EST. 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 She is doing well with no concerns. Attempting to eat a healthy diet with calcium and vitamin D and stays active with exercise. Currently sexually active with the same partner. Denies any vaginal dryness or irritation. STI testing offered; she declined. Last pap smear; 09/04/2020, UTD Colonoscopy is UTD. Mother had gestational diabetes. Mother and maternal grandfather hypertension. Confirms history of gestational diabetes. Denies any family history of breast, ovarian or colon cancer. [facility] Medical History Gestational diabetes GERD (gastroesophageal reflux disease) Morbid obesity Ureteral stone with hydronephrosis Morbid obesity with BMI of 40.0-44.9, adult Surgical History No history of previous surgery Family History Maternal Aunt Breast cancer Maternal Grandfather Hypertension Mother Hypertension Social History Alcohol intake: current Alcohol intake frequency: holidays/special occasions only Patient Tobacco Use Status: Never used Tobacco Sexual orientation: Straight/Heterosexual Gender identity: Female Female Reproductive History Menstrual Age of Menarche: 10 control method: progestin IUCD (Mirena 01/30) Total pregnancies: 2 Full term: 2 Number of Living Children: 2 Date of last pap smear: 09/04/20 (neg pap and hpv) Review of Systems Const All systems reviewed & are unremarkable except as noted in HPI and below Physical Exam Vital Signs: Last Vital Signs BP 114/74 03/04/23 08:59 BMI result Body Mass Index 42.6 Const General: cooperative, healthy appearing, no acute distress, well developed and alert Orientation/consciousness: patient oriented x3 HEENT Head: Yes normal to inspection Eyes General: appearance normal, both eyes and all related structures Neck Neck: Yes normal visual inspection Thyroid: Thyroid normal Chest Chest palpation & inspection: normal inspection of the chest Breast/axilla inspection: normal inspection of the breasts (no puckering, dimpling, peau de orange, retraction, discharge, masses) Breast/axilla palpation: normal palpation of the breasts Resp Effort & Inspection: normal respiratory effort GI Inspection: Yes normal to inspection Palpation (GI): Soft to palpation Rectal Exam - Female: deferred General: Yes bladder normal to inspection and Yes bladder normal to palpation External Female Exam: normal external appearance and normal appearance of the urethra Speculum Exam - Vagina: normal appearance of the vagina and normal palpation Speculum Exam - Cervix: normal palpation and Other cervical findings present (IUD stings were normal in length.) Bimanual exam- vagina & uterus: normal bimanual exam, normal palpation, uterine size normal, bladder normal to palpation and normal palpation Bimanual Exam- Adnexa, other: normal adnexae and no masses Skin General skin exam: no rashes or lesions noted Neuro General: patient oriented x3 Cognition (Neuro): normal cognition Extrem General: Yes normal to inspection Psych Attitude: cooperative Thought process: Normal thought process present Assessment & Plan Assessment & Plan (1) Encounter for annual routine gynecological examination: Code(s): Z01.419 - Encounter for gynecological examination (general) (routine) without abnormal findings Plan: Discussed: Current recommendations for pap smears per ASCCP guidelines. Breast awareness and periodic self breast exams. Maintaining a healthy lifestyle including a well balanced diet and routine exercise. All of her questions and concerns were addressed to the best of my ability She will return in one year for AG. Coding Level of Care Code Est Pt Prev Care 18-39y([id number]) Diagnoses Encounter for annual routine gynecological examination Z01.419
[2023-03-04 08:59] VITALS: BP 114/74; BMI 42.6
== END 2023-03-04 09:19 | disposition home or self-care (01) ==
PROVIDERS: PCP Family Medicine; Visit Provider Advanced Practice Midwife
DX: Z01.419 Encounter for gynecological examination (general) (routine) without abnormal findings (principal)
CPT/HCPCS: 99395

== ENCOUNTER → 2023-03-04 08:54 | Outpatient (BNVA) | payer OTHER, SELFPAY | PROVIDERS: PCP Family Medicine; Visit Provider Advanced Practice Midwife | DX: Z01.419 Encounter for gynecological examination (general) (routine) without abnormal findings (principal) | CPT/HCPCS: 99395 ==

== ENCOUNTER → 2023-03-05 10:44 | Outpatient (BNVA) | payer OTHER, SELFPAY | PROVIDERS: PCP Family Medicine; Visit Provider Dietitian, Registered | DX: Z01.818 Encounter for other preprocedural examination (principal) | CPT/HCPCS: 97802 ==

== ENCOUNTER 2023-03-06 08:37 | Outpatient (AMB) | payer OTHER, SELFPAY ==
--- NOTE | 2023-03-06 08:38 | A.OFFVIS_ITS ---
Intake Intake Visit Reasons: 6m/US(set) Intake Note: Pt presents as a telehealth visit today for 6 month follow up/US results. Machine Lacer Required: No Allergies No Known Allergies [No Known Allergies*] Allergy (Verified 03/08/23 13:59) Medication List - Last Reconciled 03/08/23 by TEX Flores blue-green algae (bulk) (Spirulina powder) ea miscellaneous levonorgestrel (Mirena) intrauterine multivitamin 1 tab PO DAILY omega-3 acid ethyl esters 1 cap PO DAILY omeprazole 20 mg PO DAILY pyridoxine (vitamin B6) 50 mg (1/2 x 100 mg) PO DAILY 90 days HPI HPI Comments History of Present Illness Details Manju is a pleasant 32-year-old female patient of Dr. Gray. She has a past medical history of obesity, GERD, gestational diabetes, and nephrolithiasis. She is being follow-up on today via telehealth for her longstanding history of nephrolithiasis. In discussion with the patient today she reports to be doing and feeling well. Recent renal imaging results reviewed with the patient today. Bilateral kidneys with no hydronephrosis and or renal calculi. Incidental note made on very limited views of the liver of increase in heterogeneity and echogenicity of the liver, characteristic of primary hepatocellular disease, possibly due to hepatic steatosis. She she is a heath of hepatic stenosis and is following with PCP regarding this issue. When asked she reports to be compliant with vitamin B6 daily and drinking plenty of water daily. When asked she denies any bothersome urinary issues or concerns at this time. She denies urinary urgency, urinary frequency, incontinence, nocturia, hematuria, dysuria, foul smelling urine, changes to urinary stream, flank pain, fever, and or chills. She otherwise offers no other issues or concerns at this time. [facility] Medical History Gestational diabetes GERD (gastroesophageal reflux disease) Morbid obesity Ureteral stone with hydronephrosis Morbid obesity with BMI of 40.0-44.9, adult Surgical History No history of previous surgery Family History Maternal Aunt Breast cancer Maternal Grandfather Hypertension Mother Hypertension Social History Alcohol intake: current Alcohol intake frequency: holidays/special occasions only Patient Tobacco Use Status: Never used Tobacco Sexual orientation: Straight/Heterosexual Gender identity: Female Female Reproductive History Menstrual Age of Menarche: 10 Review of Systems Const All systems reviewed & are unremarkable except as noted in HPI and below Reports no additional complaints Eyes Reports no additional complaints ENT Reports no additional complaints Card Reports no additional complaints Resp Reports no additional complaints GI Reports as per HPI Reports as per HPI Musc Reports no additional complaints Neuro Reports no additional complaints Psych Reports no additional complaints Endo Reports as per HPI Cliff/Lymph Reports no additional complaints Aller/Immun Reports no additional complaints Physical Exam Const General: cooperative Orientation/consciousness: patient oriented x3 Resp Effort & Inspection: able to speak in complete sentences Neuro General: patient oriented x3 Psych Speech and movement: Clear speech present Attitude: cooperative Thought process: Normal thought process present Thought content: Normal thought content present Insight: Fair insight present (Psych) Judgement: Fair judgement present (Psych) Results Reviewed Results Reviewed: Date of Service: 02/13/23 EXAMINATION: US RETROPERITONEAL LIMITED (RENAL ONLY) FINDINGS: RIGHT KIDNEY: 12.5 x 5.4 x 6.3 cm (SAG x AP x TRV). No hydronephrosis. No renal calculi. Renal cortical thickness is normal. Limited visualization. LEFT KIDNEY: 12.1 x 6.1 x 5.4 cm (SAG x AP x TRV). No hydronephrosis. No renal calculi. Renal cortical thickness is normal. Limited visualization. ADDITIONAL FINDINGS: Incidental note made on very limited views of the liver of increase in heterogeneity and echogenicity of the liver, characteristic of primary hepatocellular disease, possibly due to hepatic steatosis. IMPRESSION: 1. No hydronephrosis. No renal calculi. 2. Incidental note made on very limited views of the liver of increase in heterogeneity and echogenicity of the liver, characteristic of primary hepatocellular disease, possibly due to hepatic steatosis. Assessment & Plan Assessment & Plan (1) Bilateral nephrolithiasis: Code(s): N20.0 - Calculus of kidney Plan Recent renal imaging results reviewed with the patient today; as noted above. Patient denies any bothersome urinary issues or concerns at this time. Continue vitamin B6 as discussed and prescribed. Continue drinking plenty of water daily. Continue adding 1 oz of lemon juice to water daily. Will obtain renal ultrasound in 1 year Follow-up in 1 year with imaging to be completed prior; or sooner with any issues, concerns, and or questions. Orders: Orders US renal BI 364 Days N20.0 - Calculus of kidney Patient Instructions: The patient had an opportunity to ask questions regarding the treatment plan. All questions were answered. Physical exam, labs, and imaging were discussed and reviewed in detail. As well as risks, benefits, and discussion of treatment choices. No major barriers to understanding were identified. The patient expressed understanding and agreement with the above treatment plan. The patient was made aware they should contact our office by phone for worsening of their current condition, the appearance of new symptoms, or with any questions or concerns. Compliance is encouraged with any medications and follow up testing that is ordered. It is a privilege to be allowed the opportunity to participate in? your urological care.? Again, if you have any questions or concerns If you have any questions or concerns please do not hesitate to contact me. The office is [phone]. This note is constructed using voice recognition software. While every effort has been made to ensure accuracy laundry machine tender errors may have been included. Yours sincerely, GEOVANY Flores- Telehealth Telehealth Location of provider rendering services: practice address Location of patient: address on file Patient Identification confirmed using: Name, : Yes Telehealth method: voice only Patient verbally consented to treatment: Yes Patient verbally consented to billing insurance company: Yes Patient informed of any privacy concerns related to visit: Yes Minutes spent on Phone/Video with Pt.: 15 Coding Level of Care Code Tele Est Pt Level 3 (24651) Diagnoses Bilateral nephrolithiasis N20.0
== END 2023-03-06 09:31 | disposition home or self-care (01) ==
LOC: HO.HUSH 08:37
PROVIDERS: PCP Family Medicine; Visit Provider Nurse Practitioner Family
DX: N20.0 Calculus of kidney (principal)
CPT/HCPCS: 99213

== ENCOUNTER → 2023-03-06 09:52 | Outpatient (REF) | payer OTHER, SELFPAY ==
--- NOTE | 2023-03-06 09:54 | CA_ITS ---
Acquisition Time: 2023-03-06 10:05:27 Total Exercise Time: 00:08:27 Test Indications: PREOP Medications: SEE H Protocol: HERLINDA Max HR: 184 BPM 98% of Pred: 187 BPM Max BP: 158/048 mmHG Max Work Load: 10.1 METS Exercise stress test with exercise 8 min 27 sec of Herlinda protocol, achieving 98% MPHR, without anginal symptoms, without arrythmia, with normotensive response to exercise, without EKG changes meeting criteria for ischemia. Test reviewed with Dr Baldwin Referred By: Fabián Bolden Overread By: SHERITA DOBBINS
== END ==
LOC: HO.CARD 09:52
PROVIDERS: PCP Family Medicine; Visit Provider Surgery
DX: R94.31 Abnormal electrocardiogram [ECG] [EKG] (principal)
CPT/HCPCS: 93017

== ENCOUNTER → 2023-03-06 09:54 | Outpatient (BNV) | payer OTHER, SELFPAY | PROVIDERS: PCP Family Medicine; Visit Provider Nurse Practitioner Family | DX: R94.31 Abnormal electrocardiogram [ECG] [EKG] (principal); Z01.818 Encounter for other preprocedural examination | CPT/HCPCS: 93016; 93018 ==

== ENCOUNTER 2024-02-26 09:46 | Outpatient (REF) | payer OTHER, SELFPAY ==
--- NOTE | ~2024-02-26 | US_ITS ---
EXAMINATION: US RETROPERITONEAL LIMITED (RENAL ONLY) CLINICAL INFORMATION: Calculus of kidney. COMPARISON: Renal ultrasound 02/13/2023 and 07/23/2022. CT abdomen and pelvis 06/23/2020. TECHNIQUE: Real-time imaging of the kidneys. FINDINGS: RIGHT KIDNEY: 12.3 x 5.2 x 5.3 cm (SAG x AP x TRV). The kidney is normal in size, contour, and echogenicity. Renal cortical thickness is normal. No calculi or focal parenchymal lesions. No hydronephrosis. LEFT KIDNEY: 11.4 x 6.1 x 4.6 cm (SAG x AP x TRV). The kidney is normal in size, contour, and echogenicity. Renal cortical thickness is normal. No calculi or focal parenchymal lesions. No hydronephrosis. US/US renal BI IMPRESSION: Normal kidneys. No calculi seen. Electronically signed by: Black Rondon MD 03/09/2024 12:44 AM EDT
== END 2024-02-26 09:47 | disposition home or self-care (01) ==
LOC: HO.US 09:46
PROVIDERS: PCP Family Medicine; Visit Provider Nurse Practitioner Family
DX: N20.0 Calculus of kidney (principal)
CPT/HCPCS: 76775

== ENCOUNTER 2024-03-07 08:44 | Outpatient (AMB) | payer OTHER, SELFPAY ==
--- NOTE | 2024-03-07 08:47 | A.OFFVIS_ITS ---
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 Gray. She has a past medical history of obesity, GERD, gestational diabetes, and nephrolithiasis. She presents to the office today for follow-up of her longstanding history of nephrolithiasis. In discussion with the patient today she reports no bothersome urinary issues or concerns since her last office visit here approximately 1 year ago. Recent renal imaging results reviewed with the patient today. Bilateral kidneys are normal in size, contour, and echogenicity. No renal calculi, lesions, and or hydronephrosis noted bilaterally. She reports having ran out of refills on her vitamin B6 however has been drinking plenty of water daily. She continues to add 1 oz of lemon juice to water daily. When asked she denies any bothersome urinary issues or concerns at this time. She denies urinary urgency, urinary frequency, incontinence, nocturia, hematuria, dysuria, foul smelling urine, changes to urinary stream, flank pain, fever, and or chills. In office urinalysis results reviewed with the patient today. She otherwise offers no other issues or concerns at this time. [facility] Medical History History of gestational diabetes GERD (gastroesophageal reflux disease) Morbid obesity Ureteral stone with hydronephrosis Morbid obesity with BMI of 40.0-44.9, adult Surgical History No history of previous surgery Family History Maternal Aunt Breast cancer Maternal Grandfather Hypertension Mother Hypertension Social History Alcohol intake: current Alcohol intake frequency: holidays/special occasions only Patient Tobacco Use Status: Never used Tobacco Sexual orientation: Straight/Heterosexual Gender identity: Female Female Reproductive History Menstrual Age of Menarche: 10 Review of Systems Const All systems reviewed & are unremarkable except as noted in HPI and below Reports no additional complaints Eyes Reports no additional complaints ENT Reports no additional complaints Card Reports no additional complaints Resp Reports no additional complaints GI Reports as per HPI Reports as per HPI Musc Reports no additional complaints Neuro Reports no additional complaints Psych Reports no additional complaints Endo Reports as per HPI Cliff/Lymph Reports no additional complaints Aller/Immun Reports no additional complaints Physical Exam Const General: cooperative, healthy appearing, comfortable, no acute distress, well developed, alert and awake Orientation/consciousness: patient oriented x3 Limitations: no limitations HEENT Head: Yes normal to inspection, Yes normocephalic and Yes atraumatic Ears: hearing grossly normal bilaterally Eyes General: appearance normal, both eyes and all related structures Neck Neck: Yes normal visual inspection and Yes trachea midline Chest Chest palpation & inspection: normal inspection of the chest Resp Effort & Inspection: able to speak in complete sentences Cardio Rate: regular rate GI Inspection: Yes normal to inspection General: Yes no CVA tenderness Back/Spine/Pelvis Back: no CVA tenderness Skin General skin exam: no rashes or lesions noted Neuro General: patient oriented x3 Extrem General: Yes normal to inspection Psych Appearance: grossly normal and well kempt Mental Status: mental status grossly normal Speech and movement: Clear speech present Affect: normal affect Attitude: cooperative Thought process: Normal thought process present Thought content: Normal thought content present Insight: Fair insight present (Psych) Judgement: Fair judgement present (Psych) Results AMB Urinalysis, Automated UA Leukoctes 70 Wilmar/uL Last Edit by Damari Lezama on 03/07/24 09:00 UA Nitrite Last Edit by Damari Lezama on 03/07/24 09:00 UA Urobilinogen 0.2 mg/dL Last Edit by Damari Lezama on 03/07/24 09:00 UA Protein 0 mg/dL Last Edit by Damari Lezama on 03/07/24 09:00 UA pH 6.0 Last Edit by Damari Lezama on 03/07/24 09:00 UA Blood 10 Peter/uL Last Edit by Damari Lezama on 03/07/24 09:00 UA Specific Gorin 1.025 Last Edit by Damari Lezama on 03/07/24 09:00 UA Ketone Negative Last Edit by Damari Lezama on 03/07/24 09:00 UA Bilirubin 0 mg/dL Last Edit by Damari Lezama on 03/07/24 09:00 UA Glucose 0 mg/dL Last Edit by Damari Lezama on 03/07/24 09:00 Results Reviewed Results Reviewed: Laboratory Last Values Urine pH (Auto) 6.0 03/07/24 08:57 Specific Gorin (Auto) 1.025 03/07/24 08:57 Urine Protein (Auto) 0 mg/dL 03/07/24 08:57 Glucose (UA)(Auto) 0 mg/dL 03/07/24 08:57 Urine Ketones (Auto) Negative 03/07/24 08:57 Urine Blood (Auto) 10 Peter/uL 03/07/24 08:57 Urine Bilirubin (Auto) 0 mg/dL 03/07/24 08:57 Urine Urobilinogen (Auto) 0.2 mg/dL 03/07/24 08:57 Leukocyte Esterase (Auto) 70 Wilmar/uL 03/07/24 08:57 Date of Service: 02/26/24 EXAMINATION: US RETROPERITONEAL LIMITED (RENAL ONLY) FINDINGS: RIGHT KIDNEY: 12.3 x 5.2 x 5.3 cm (SAG x AP x TRV). The kidney is normal in size, contour, and echogenicity. Renal cortical thickness is normal. No calculi or focal parenchymal lesions. No hydronephrosis. LEFT KIDNEY: 11.4 x 6.1 x 4.6 cm (SAG x AP x TRV). The kidney is normal in size, contour, and echogenicity. Renal cortical thickness is normal. No calculi or focal parenchymal lesions. No hydronephrosis. IMPRESSION: Normal kidneys. No calculi seen. Assessment & Plan Assessment & Plan (1) Bilateral nephrolithiasis: Code(s): N20.0 - Calculus of kidney Category: Medical (2) Ureteral stone with hydronephrosis: Code(s): N13.2 - Hydronephrosis with renal and ureteral calculous obstruction Category: Medical Plan Recent renal imaging results reviewed with the patient today; as noted above. Patient denies any bothersome urinary issues or concerns at this time. Stop vitamin B6. Continue drinking plenty of water daily. Continue adding 1 oz of lemon juice to water daily. Will obtain renal ultrasound in 1 year Follow-up in 1 year with imaging to be completed prior; or sooner with any issues, concerns, and or questions. Orders: Orders AMB Urinalysis Automated 03/07/24 Z13.9 - Encounter for screening, unspecified US renal BI 1 Year N20.0 - Calculus of kidney Patient Instructions: The patient had an opportunity to ask questions regarding the treatment plan. All questions were answered. Physical exam, labs, and imaging were discussed and reviewed in detail. As well as risks, benefits, and discussion of treatment choices. No major barriers to understanding were identified. The patient expressed understanding and agreement with the above treatment plan. The patient was made aware they should contact our office by phone for worsening of their current condition, the appearance of new symptoms, or with any questions or concerns. Compliance is encouraged with any medications and follow up testing that is ordered. It is a privilege to be allowed the opportunity to participate in? your urological care.? Again, if you have any questions or concerns If you have any questions or concerns please do not hesitate to contact me. The office is [phone]. This note is constructed using voice recognition software. While every effort has been made to ensure accuracy tree expert errors may have been included. Yours sincerely, TEX Flores Coding Level of Care Code Est Pt Level 3 (06387) Diagnoses Bilateral nephrolithiasis N20.0 Ureteral stone with hydronephrosis N13.2
== END 2024-03-07 09:31 | disposition home or self-care (01) ==
PROVIDERS: PCP Family Medicine; Visit Provider Nurse Practitioner Family
DX: N20.0 Calculus of kidney (principal); N13.2 Hydronephrosis with renal and ureteral calculous obstruction
CPT/HCPCS: 99213

== ENCOUNTER → 2024-03-07 08:44 | Outpatient (BNVA) | payer OTHER, SELFPAY | PROVIDERS: PCP Family Medicine; Visit Provider Nurse Practitioner Family | DX: N20.0 Calculus of kidney (principal); N13.2 Hydronephrosis with renal and ureteral calculous obstruction | CPT/HCPCS: 81003; 99212 ==

== ENCOUNTER 2024-03-09 09:09 | Outpatient (AMB) | payer OTHER, SELFPAY ==
--- NOTE | 2024-03-09 09:10 | MHC.OFFVIS ---
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 Doing well with concerns: skin bumps, sore inner thighs and vulva. She tries to eat healthy and stays active with exercise. Lost 40 lb over the last year with diet and exercise. Occasional spotting w/the Mirena. Currently is sexually active. She denies vaginal itching and irritation. STI screening offered; she declines. Denies family history of ovarian or colon cancer. FH breast cancer-M.aunt. Last pap smear 2020, negative. [facility] Medical History History of gestational diabetes GERD (gastroesophageal reflux disease) Morbid obesity Ureteral stone with hydronephrosis Morbid obesity with BMI of 40.0-44.9, adult Surgical History No history of previous surgery Family History Maternal Aunt Breast cancer Maternal Grandfather Hypertension Mother Hypertension Social History Alcohol intake: current Alcohol intake frequency: holidays/special occasions only Patient Tobacco Use Status: Never used Tobacco Sexual orientation: Straight/Heterosexual Gender identity: Female Female Reproductive History Menstrual Age of Menarche: 10 control method: progestin IUCD (Mirena 01/2022) Total pregnancies: 2 Full term: 2 Number of Living Children: 2 Date of last pap smear: 09/04/20 (neg pap and hpv) Review of Systems Const All systems reviewed & are unremarkable except as noted in HPI and below Reports as per HPI Eyes Reports no additional complaints ENT Reports no additional complaints Card Reports no additional complaints Resp Reports no additional complaints GI Reports as per HPI and Reports no additional complaints Reports as per HPI Musc Reports no additional complaints Skin/Breast Reports as per HPI Neuro Reports no additional complaints Psych Reports no additional complaints Endo Reports no additional complaints Cliff/Lymph Reports no additional complaints Aller/Immun Reports no additional complaints Physical Exam Vital Signs: Last Vital Signs BP 120/70 03/09/24 09:11 BMI result Body Mass Index 38.2 Const General: cooperative, healthy appearing, no acute distress, well developed and alert Orientation/consciousness: patient oriented x3 HEENT Head: Yes normal to inspection Eyes General: appearance normal, both eyes and all related structures Neck Neck: Yes normal visual inspection Thyroid: Thyroid normal Chest Chest palpation & inspection: normal inspection of the chest and other (no puckering, dimpling, peau de orange, retraction, discharge, masses) Breast/axilla inspection: normal inspection of the breasts Breast/axilla palpation: normal palpation of the breasts Resp Effort & Inspection: normal respiratory effort GI Inspection: Yes normal to inspection Palpation (GI): Soft to palpation Rectal Exam - Female: deferred General: Yes bladder normal to palpation External Female Exam: normal external appearance and normal appearance of the urethra Speculum Exam - Vagina: normal appearance of the vagina, normal palpation, normal vaginal discharge and vaginal bleeding Speculum Exam - Cervix: normal appearance of the cervix, normal palpation and Other cervical findings present (IUD strings at the os) Bimanual exam- vagina & uterus: normal bimanual exam, normal palpation, uterine size normal, bladder normal to palpation, normal palpation and non-tender Bimanual Exam- Adnexa, other: no masses OB/external & speculum: vaginal bleeding Skin Other: Skin eruptions inner thighs in stages of healing, no cellulitis or abscesses General skin exam: no rashes or lesions noted Rashes: no rashes Neuro General: patient oriented x3 Cognition (Neuro): normal cognition Extrem General: Yes normal to inspection Psych Attitude: cooperative Thought process: Normal thought process present Assessment & Plan Assessment & Plan (1) Encounter for annual routine gynecological examination: Code(s): Z01.419 - Encounter for gynecological examination (general) (routine) without abnormal findings Category: Medical Plan Discussed: Current recommendations for pap smears per ASCCP guidelines. Breast awareness and periodic breast exams. Maintain a healthy lifestyle including a well balanced diet and routine exercise. Skin care: use of antimicrobial soaps, cotton loose clothing, often associated with elevated BMI and may improve with weight loss, use of warm compresses p.r.n., seek evaluation if any signs of abscess or cellulitis. Patient verbalizes understanding and agrees to the plan of care. She was given opportunity to ask questions and all questions were answered to the best of my ability. 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 This note is constructed using voice recognition software. While every effort has been made to ensure accuracy, small electric engine technician errors may have been included. Coding Level of Care Code Est Pt Prev Care 18-39y(71993) Diagnoses Encounter for annual routine gynecological examination Z01.419
[2024-03-09 09:11] VITALS: BP 120/70; BMI 38.2
== END 2024-03-09 09:55 | disposition home or self-care (01) ==
LOC: HO.HWS 09:09
PROVIDERS: PCP Family Medicine; Visit Provider Advanced Practice Midwife
DX: Z01.419 Encounter for gynecological examination (general) (routine) without abnormal findings (principal)
CPT/HCPCS: 99395

== ENCOUNTER → 2024-03-09 09:09 | Outpatient (BNVA) | payer OTHER, SELFPAY | PROVIDERS: PCP Family Medicine; Visit Provider Advanced Practice Midwife | DX: Z01.419 Encounter for gynecological examination (general) (routine) without abnormal findings (principal) | CPT/HCPCS: 99395 ==

== ENCOUNTER 2025-03-01 13:52 | Outpatient (REF) | payer OTHER, SELFPAY ==
--- NOTE | ~2025-03-01 | US_ITS ---
EXAMINATION: US RETROPERITONEAL LIMITED (RENAL ONLY) CLINICAL INFORMATION: N20.0. Calculus of kidney.. COMPARISON: February 26, 2024. TECHNIQUE: Real-time ultrasound kidneys using grayscale technique. FINDINGS: RIGHT KIDNEY: 12 x 6 x 5 cm (SAG x AP x TRV). Normal echotexture. Renal cortical thickness is normal. No hydronephrosis. No solid or cystic lesion. LEFT KIDNEY: 12 x 6 x 6 cm (SAG x AP x TRV). Normal echotexture. Renal cortical thickness is normal. No hydronephrosis. No solid or cystic lesion. US/US renal BI IMPRESSION: No hydronephrosis or nephrolithiasis. Normal exam.. Electronically signed by: Esteban Warren MD 03/01/2025 02:37 PM EDT
== END 2025-03-01 13:53 | disposition home or self-care (01) ==
LOC: HO.US 13:52
PROVIDERS: PCP Family Medicine; Visit Provider Nurse Practitioner Family
DX: N20.0 Calculus of kidney (principal)
CPT/HCPCS: 76775

== ENCOUNTER → 2025-03-01 13:55 | Outpatient (BNV) | payer OTHER, SELFPAY | PROVIDERS: PCP Family Medicine; Visit Provider Radiology Diagnostic Radiology | DX: N20.0 Calculus of kidney (principal) | CPT/HCPCS: 76775 ==

== ENCOUNTER 2025-03-08 11:09 | Outpatient (AMB) | payer OTHER, SELFPAY ==
--- NOTE | 2025-03-08 11:10 | MHC.OFFVIS ---
Intake Visit Reasons: 1y/US Intake Note: Patient is present for 1Y/US Urology Medication:NONE Antibiotic Allergy:NONE Blood Thinner:NONE Talent Development Analyst Required: No Allergies No Known Allergies (No Known Allergies*) Allergy (Verified 03/08/25 11:54) Medication List - Last Reconciled 03/08/25 by TEX Flores blue-green algae (bulk) (Spirulina powder) ea miscellaneous levonorgestrel (Mirena) intrauterine multivitamin 1 tab PO DAILY omeprazole 20 mg PO DAILY HPI Comments Details: Manju is a pleasant 34-year-old female patient of Dr. Gray. She has a past medical history of obesity, GERD, gestational diabetes, and nephrolithiasis. She is being followed up on today via telehealth for her history of nephrolithiasis. In discussion with the patient today she reports no bothersome urinary issues or concerns since her last office visit here approximately 1 year ago. Recent renal imaging results reviewed with the patient today. Bilateral kidneys are normal in size, contour, and echogenicity. No renal calculi, lesions, and or hydronephrosis noted bilaterally. She reports to be drinking plenty of water daily. She continues to add 1 oz of lemon juice to water daily. When asked she denies any bothersome urinary issues or concerns at this time. She denies urinary urgency, urinary frequency, incontinence, nocturia, hematuria, dysuria, foul smelling urine, changes to urinary stream, flank pain, fever, and or chills. In office urinalysis results reviewed with the patient today. She otherwise offers no other issues or concerns at this time. [facility] Medical History History of gestational diabetes GERD (gastroesophageal reflux disease) Morbid obesity Ureteral stone with hydronephrosis Morbid obesity with BMI of 40.0-44.9, adult Surgical History No history of previous surgery Family History Maternal Aunt Breast cancer Maternal Grandfather Hypertension Mother Hypertension Social History Alcohol intake: current Alcohol intake frequency: holidays/special occasions only Patient Tobacco Use Status: Never used Tobacco Sexual orientation: Straight/Heterosexual Gender identity: Female Female Reproductive History Menstrual Age of Menarche: 10 Physical Exam Const General: cooperative Orientation/consciousness: patient oriented x3 Resp Effort & Inspection: able to speak in complete sentences Neuro General: patient oriented x3 Psych Speech and movement: Clear speech present Attitude: cooperative Thought process: Normal thought process present Thought content: Normal thought content present Insight: Fair insight present (Psych) Judgement: Fair judgement present (Psych) Telehealth Telehealth Telehealth Platform: Telephone Location of provider rendering services: practice address Location of patient: address on file Patient Identification confirmed using: Name, : Yes Telehealth method: voice only Patient verbally consented to treatment: Yes Patient verbally consented to billing insurance company: Yes Patient informed of any privacy concerns related to visit: Yes Minutes spent on Phone/Video with Pt.: 15 Results Reviewed Results Reviewed: Date of Service: 03/01/25 Procedure(s): US renal BI FINDINGS: RIGHT KIDNEY: 12 x 6 x 5 cm (SAG x AP x TRV). Normal echotexture. Renal cortical thickness is normal. No hydronephrosis. No solid or cystic lesion. LEFT KIDNEY: 12 x 6 x 6 cm (SAG x AP x TRV). Normal echotexture. Renal cortical thickness is normal. No hydronephrosis. No solid or cystic lesion. IMPRESSION: No hydronephrosis or nephrolithiasis. Normal exam. Assessment & Plan Assessment & Plan (1) Bilateral nephrolithiasis: Code(s): N20.0 - Calculus of kidney Category: Medical (2) Ureteral stone with hydronephrosis: Code(s): N13.2 - Hydronephrosis with renal and ureteral calculous obstruction Category: Medical Plan Recent renal imaging results reviewed with the patient today; as noted above. Patient denies any bothersome urinary issues or concerns at this time. She reports be happy with current voiding parameters. Continue drinking plenty of water daily. Continue adding 1 oz of lemon juice to water daily. Will obtain renal ultrasound in 1 year Follow-up in 1 year with imaging to be completed prior; or sooner with any issues, concerns, and or questions. Orders: Orders US renal BI 1 Year N20.0 - Calculus of kidney Patient Instructions: The patient had an opportunity to ask questions regarding the treatment plan. All questions were answered. Physical exam, labs, and imaging were discussed and reviewed in detail. As well as risks, benefits, and discussion of treatment choices. No major barriers to understanding were identified. The patient expressed understanding and agreement with the above treatment plan. The patient was made aware they should contact our office by phone for worsening of their current condition, the appearance of new symptoms, or with any questions or concerns. Compliance is encouraged with any medications and follow up testing that is ordered. It is a privilege to be allowed the opportunity to participate in? your urological care.? Again, if you have any questions or concerns If you have any questions or concerns please do not hesitate to contact me. The office is [phone]. This note is constructed using voice recognition software. While every effort has been made to ensure accuracy tax economist errors may have been included. Yours sincerely, TEX Flores Coding Level of Care Code Tele Est Pt Level 3 (64726) Diagnoses Bilateral nephrolithiasis N20.0 Ureteral stone with hydronephrosis N13.2
--- OUTSIDE RECORDS SUMMARY | 2025-03-08 14:05 | XMS_ITS ---
Author Name [facility] Organization Unknown Care Team Organization Name Specialty Phone Email Start Date End Da te [facility] Trini [facility] 07/16/2022 024 [facility] Termed, PROVIDER Primary Care 03/18/202212/09
== END 2025-03-08 14:00 | disposition home or self-care (01) ==
LOC: HO.HUSH 11:09
PROVIDERS: PCP Family Medicine; Visit Provider Nurse Practitioner Family
DX: N13.2 Hydronephrosis with renal and ureteral calculous obstruction (principal)
CPT/HCPCS: 98013

== ENCOUNTER 2025-03-16 08:54 | Outpatient (AMB) | payer OTHER, SELFPAY ==
--- NOTE | 2025-03-16 08:56 | A.OFFVIS_ITS ---
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 no concerns for today Animal Husbandry Worker Required: No Information Interpreted: non-clinical & clinical Fabrication Technician: Fabrication Technician Present (Nicole) Accompanied by: Self / Same As Patient Allergies No Known Allergies (No Known Allergies*) Allergy (Verified 03/16/25 08:59) Medication List - Last Reconciled 03/16/25 by Dawna Ruiz LPN blue-green algae (bulk) (Spirulina powder) ea miscellaneous escitalopram oxalate (Lexapro) 20 mg PO DAILY levonorgestrel (Mirena) intrauterine lorazepam 0.5 mg PO DAILY PRN multivitamin 1 tab PO DAILY omeprazole 20 mg PO DAILY Is last menstrual period known: Yes (mirena in place no periods just random spotting) Do you need a note to return to daycare/school/sports/work: No HPI Comments Details: Patient is a premenopausal woman presenting for annual examination. Drafter Electronic concerns: none. Mirena user. Currently is sexually active. She denies vaginal itching or irritation. STI screening offered; she declined. She tries to eat healthy and stays active with exercise. Family history of breast cancer. Last pap smear 2020, negative. 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 Sexual orientation: Straight/Heterosexual Gender identity: Female Female Reproductive History Menstrual Age of Menarche: 10 control method: progestin IUCD Total pregnancies: 2 Number of Living Children: 2 Date of last pap smear: 09/05/20 History of abnormal pap smear: No Review of Systems Const All systems reviewed & are unremarkable except as noted in HPI and below Reports as per HPI Eyes Reports no additional complaints ENT Reports no additional complaints Card Reports no additional complaints Resp Reports no additional complaints GI Reports as per HPI and Reports no additional complaints Reports as per HPI Musc Reports no additional complaints Skin/Breast Reports as per HPI Neuro Reports no additional complaints Psych Reports no additional complaints Endo Reports no additional complaints Cliff/Lymph Reports no additional complaints Aller/Immun Reports no additional complaints Physical Exam Vital Signs: Last Vital Signs BP 104/62 03/16/25 09:05 BMI result Body Mass Index 37.3 Const General: cooperative, healthy appearing, no acute distress, well developed and alert Orientation/consciousness: patient oriented x3 HEENT Head: Yes normal to inspection Eyes General: appearance normal, both eyes and all related structures Neck Neck: Yes normal visual inspection Thyroid: Thyroid normal Chest Chest palpation & inspection: normal inspection of the chest and other (no puckering, dimpling, peau de orange, retraction, discharge, masses) Breast/axilla inspection: normal inspection of the breasts Breast/axilla palpation: normal palpation of the breasts Resp Effort & Inspection: normal respiratory effort GI Inspection: Yes normal to inspection Palpation (GI): Soft to palpation Rectal Exam - Female: deferred General: Yes bladder normal to palpation External Female Exam: normal external appearance and normal appearance of the urethra Speculum Exam - Vagina: normal appearance of the vagina, normal palpation and normal vaginal discharge Speculum Exam - Cervix: normal appearance of the cervix, normal palpation and Other cervical findings present (IUD strings at the os) Bimanual exam- vagina & uterus: normal bimanual exam, normal palpation, uterine size normal, bladder normal to palpation, normal palpation and non-tender Bimanual Exam- Adnexa, other: no masses Skin General skin exam: no rashes or lesions noted Rashes: no rashes Neuro General: patient oriented x3 Cognition (Neuro): normal cognition Extrem General: Yes normal to inspection Psych Attitude: cooperative Thought process: Normal thought process present Assessment & Plan Assessment & Plan (1) Encounter for annual routine gynecological examination: Code(s): Z01.419 - Encounter for gynecological examination (general) (routine) without abnormal findings Category: Medical Plan Discussed: Current recommendations for pap smears per ASCCP guidelines. Breast awareness and periodic breast exams. Maintain a healthy lifestyle including a well balanced diet and routine exercise. Patient verbalizes understanding and agrees to the plan of care. She was given opportunity to ask questions and all questions were answered to the best of my ability. RTO in one year for annual interior assemblies developer prover examination. This note is constructed using voice recognition software. While every effort has been made to ensure accuracy, integration assistant errors may have been included. Coding Level of Care Code Est Pt Prev Care 18-39y(14396) Diagnoses Encounter for annual routine gynecological examination Z01.419
[2025-03-16 09:05] VITALS: BP 104/62; BMI 37.3
== END 2025-03-16 09:33 | disposition home or self-care (01) ==
LOC: HO.HWS 08:54
PROVIDERS: PCP Family Medicine; Visit Provider Advanced Practice Midwife
DX: Z01.419 Encounter for gynecological examination (general) (routine) without abnormal findings (principal)
CPT/HCPCS: 99395; 99459

== ENCOUNTER → 2025-03-16 08:54 | Outpatient (BNVA) | payer OTHER, SELFPAY | PROVIDERS: PCP Family Medicine; Visit Provider Advanced Practice Midwife | DX: Z01.419 Encounter for gynecological examination (general) (routine) without abnormal findings (principal) | CPT/HCPCS: 99395 ==